=== PATIENT | male | born 1935 | race Caucasian/White ===

== ENCOUNTER 2020-11-28 14:53 | Inpatient (IN) | payer MEDICARE, BC, SELFPAY ==
[2020-11-28] VITALS (8 sets, daily range): BP systolic 102–136; BP diastolic 58–77; PULSE 80–112; RESP 16–18; TEMP 36.4–37.3; O2SAT 93–99; BMI 25.3
--- NOTE | ~2020-11-28 | XR_ITS ---
EXAMINATION: XR chest 2V DATE: 11/28/2020 15:52 INDICATION: Confusion, weakness and lethargy TECHNIQUE: frontal and lateral views of the chest were obtained. COMPARISON: Chest radiograph dated 04/09/2016 FINDINGS: Mild streaky opacities at the bilateral lung bases and favor atelectasis over pneumonia. No pleural e ffusion or pneumothorax. The cardiomediastinal silhouette is normal. Atherosclerotic and mildly tortu ous thoracic aorta. Mild scattered degenerative skeletal changes. IMPRESSION: 1. Mild bibasilar opacities and favor atelectasis over pneumonia. Reviewed, dictated and finalized at location A. BAG PACKER
--- NOTE | ~2020-11-28 | XR_ITS ---
EXAMINATION: XR chest 1V portable INDICATION: Shortness of breath TECHNIQUE: Portable AP chest at 0522 hours COMPARISON: 12/02/2020 FINDINGS: Airspace opacities of the mid and lower lung zones persist without significant change. Ther e is no pleural effusion or pneumothorax. The cardiomediastinal silhouette is normal. IMPRESSION: 1. Stable airspace opacities of the mid and lower lung zones, likely pneumonia. Reviewed, dictated and finalized at location A. AVER FLATWARE
--- NOTE | ~2020-11-28 | CT_ITS ---
EXAMINATION: CT brain wo con EXAM DATE: 11/28/2020 17:46 INDICATION: Confusion. Melanoma. TECHNIQUE: Spiral CT of the head was performed without contrast. Axial, coronal and sagittal images were reviewed. The dose-length product (DLP) for this examination was 605.33 mGy-cm. The exposure w as tailored according to patient size, and iterative reconstruction (ASIR) was used as additional dos e reduction technique. There is no prior study for comparison. FINDINGS: There is no acute intraparenchymal hemorrhage. No evidence of intraparenchymal brain mass lesion. No evidence of acute infarction. Please note that initial head CT has limited sensitivity f or small or acute infarctions. Possible 5 mm colloid cyst at the foramen of Monro. There is mild pe riventricular and subcortical hypodensity, nonspecific but probably related to small vessel ischemic disease. There is mild prominence of the sulci and ventricles related to cerebral atrophy. There is intracranial carotid arteriosclerosis. There are no extra-axial collections. There is no mass ef fect or midline shift. Prosthetic right globe. Left cataract surgery. Soft tissue is unremarkable. The visualized sinuses and mastoid air cells are well aerated. IMPRESSION: 1. No acute intracranial findings. 2. Chronic age related findings. 3. Possible small colloid cyst. Reviewed, dictated and finalized at location G. DRAFTING MACHINE OPERATOR
--- NOTE | ~2020-11-28 | US_ITS ---
EXAMINATION: US abdomen limited EXAM DATE: 12/05/2020 11:20 INDICATION: elevated liver enzymes, decreased appetite TECHNIQUE: Multiple grayscale and Doppler images of the abdomen right upper quadrant were obtained (b y a technologist who performed the scan) and subsequently reviewed. There is no prior study for norris carcamo. FINDINGS: Pancreas is poorly visualized. Mildly echogenic liver parenchyma, hepatic steatosis. There are no f ocal liver lesions identified. There is no evidence of intrahepatic biliary duct dilation. Portal venous flow was seen in the hepatopedal, normal direction and has normal Doppler waveform. No right- sided hydronephrosis. Common bile duct measures 3 mm, which is normal. The gallbladder wall is normal in thickness, with ex pected amount of distention. No sonographic evidence of pericholecystic fluid. There is no cholelit hiases. Technologist performing exam reports patient did not demonstrate sonographic James's sign. Please note that this sign is less reliable in patients who have received pain medication. IMPRESSION: 1. Hepatic steatosis. Reviewed, dictated and finalized at location B. F ANALYTICS OFFICER IMPRESSION: 1. Hepatic steatosis.
--- NOTE | ~2020-11-28 | XR_ITS ---
EXAMINATION: XR chest 1V portable INDICATION: COVID 19, shortness of breath TECHNIQUE: Portable AP chest at 0534 hours COMPARISON: 11/28/2020 FINDINGS: Airspace opacities have developed in the mid and lower lung zones, right greater than left. There is no pleural effusion or pneumothorax. The heart size is normal. Calcified atherosclerosis is noted. IMPRESSION: 1. Airspace opacities of the mid and lower lung zones, likely pneumonia related to history of COVID 1 9. Reviewed, dictated and finalized at location A. INTAKE WORKER IMPRESSION: 1. Airspace opacities of the mid and lower lung zones, likely pneumonia related to history of COVID 19.
--- NOTE | ~2020-11-28 | CT_ITS ---
EXAMINATION: CT brain wo con INDICATION: Head injury COMPARISON: 11/28/2020 TECHNIQUE: Standard unenhanced head CT. The dose-length product (DLP) was 605.33 mGy-cm. The mA was a djusted according to patient size. Iterative reconstruction technique was employed. FINDINGS: There is no acute intraparenchymal hemorrhage. No evidence of mass lesion. No evidence of a cute infarction. There is mild periventricular and subcortical hypodensity probably related to small vessel ischemic disease. There is mild prominence of the sulci and ventricles related to cerebral atr ophy. Intracranial calcified cerebral atherosclerosis is noted. There are no extra-axial collections. There is no mass effect or midline shift. A right globe prosthesis is noted. There is mild mucosal thickening of the paranasal sinuses. IMPRESSION: 1. No acute intracranial abnormality. 2. Age related findings. Reviewed, dictated and finalized at location A. STER COOK
--- NOTE | 2020-11-28 15:19 | ECG_ITS ---
Measurements Intervals [place] Rate: 88 P: 94 [place]: 160 QRS: -46 QRSD: 94 T: 51 QT: 362 QTc: 438 Interpretive Statements SINUS RHYTHM INCOMPLETE RIGHT BUNDLE BRANCH BLOCK LEFT ANTERIOR FASCICULAR BLOCK ABNORMAL ECG Electronically Signed On 11-28-2020 19:00:11 FURNACE SETTER by Yohannes Christie D.O.
[2020-11-28 15:35] LABS: Basophils Percent Auto 0.2 % (0.2-1.2); Hematocrit 37.8 % (42.0-52.0); Hemoglobin 12.5 g/dL (14.0-18.0); Immature Granulocyte Absolute 0.02 K/mm3 (0.00-0.031); Immature Granulocyte Percent A 0.4 % (0-0.5); Immature Platelet Fraction Pct 8.1 % (0.9-11.2); Lymphocytes Absolute Auto 1.04 K/mm3 (0.9-3.2); Lymphocytes Percent Auto 18.6 % (18.3-44.2); Mean Corpuscular HGB Conc 33.1 g/dl (32-36); Mean Corpuscular Volume 90.6 fl (80-100); Mean Platelet Volume 11.5 fl (7.4-10.4); Monocytes Absolute Auto 0.6 K/mm3 (0.1-0.6); Monocytes Percent Auto 11.3 % (2.6-8.5); Neutrophils Absolute Auto 3.9 K/mm3 (1.3-6.7); Neutrophils Percent Auto 69.5 % (45.5-73.1); Platelet Count Result 152 k/mm3 (150-375); Red Blood Count 4.17 M/mm3 (4.6-6.20); White Blood Count 5.6 K/mm3 (4.5-10.0)
[2020-11-28 15:46] LABS: Alanine Aminotransferase 37 U/L (4-50); Albumin Level 4.2 g/dL (3.5-5.1); Alkaline Phosphatase 91 U/L (38-126); Anion Gap 8 mmol/L (8-16); Aspartate Amino Transferase 67 U/L (17-59); Bilirubin,Total 0.9 mg/dL (0.2-1.3); Blood Urea Nitrogen 54 mg/dL (9-20); Calcium 8.5 mg/dL (8.4-10.2); Carbon Dioxide 30 mmol/L (22-30); Chloride 101 mmol/L (98-107); Estimated CRCL calculation 19 ml/min; Estimated Glomerular Filt Rate 21; Glucose 119 mg/dL (75-110); Potassium 3.4 mmol/L (3.4-5.0); Sodium 139 mmol/L (137-145)
--- NOTE | 2020-11-28 17:34 | ED.GENADULT ---
HPI - General Adult General Chief complaint: Weakness Stated complaint: weakness, decreased po intake Time Seen by Provider: 11/28/20 17:29 Source: patient and family History of Present Illness HPI narrative: Patient is a 85 y/o male brought in by family for increasing weakness and confusion. His son states that patient can usually walk and eat on his own. However, he can barely walk and has not eating eating for last 3 days. Related Data Allergies Allergy/AdvReac Type Severity Reaction Status Date / Time No Known Allergies Allergy Verified 11/28/20 15:20 Review of Systems Review of Systems: ROS unobtainable: Yes unobtainable due to mental status [facility] Social History Social History Gender identity (if verbalized by the patient): Male Exam Const: General: no acute distress and well developed Orientation/consciousness: oriented to person, oriented to place and confusion HENMT: Head: normocephalic Ears: external ears normal General nose exam: Normal external nose present Eyes: General: appearance normal, both eyes and all related structures Conjunctivae: conjunctivae normal Neck: Neck: normal visual inspection and full ROM Chest: Chest palpation & inspection: normal inspection of the chest and no tenderness Resp: Effort & Inspection: normal respiratory effort Auscultation: clear to auscultation bilaterally Cardio: Rate: regular rate Rhythm: regular rhythm GI: GI Palp: No abdominal tenderness and Yes Soft to palpation Skin: General skin exam: normal color and turgor normal Neuro: General: oriented to person, oriented to place and confusion Cranial nerves: Yes hard of hearing Cognition (Neuro): normal cognition Extrem: General: normal to inspection, full ROM and no pedal edema Psych: Appearance: grossly normal Mental Status: mental status grossly normal Affect: normal affect Course Vital Signs Vital signs: Vital Signs Temperature 36.7 C 11/28/20 15:13 Pulse Rate 86 11/28/20 15:13 Respiratory Rate 16 11/28/20 15:13 Blood Pressure 104/63 11/28/20 15:13 Pulse Oximetry 96 11/28/20 15:13 Temperature 36.7 C 11/28/20 15:13 Pulse Rate 87 11/28/20 18:11 Respiratory Rate 18 11/28/20 18:11 Blood Pressure 121/71 11/28/20 18:11 Pulse Oximetry 97 11/28/20 18:11 Medical Decision Making Vital Signs Vital Signs: Vital Signs Temperature 36.7 C 11/28/20 15:13 Pulse Rate 86 11/28/20 15:13 Respiratory Rate 16 11/28/20 15:13 Blood Pressure 104/63 11/28/20 15:13 Pulse Oximetry 96 11/28/20 15:13 Temperature 36.7 C 11/28/20 15:13 Pulse Rate 87 11/28/20 18:11 Respiratory Rate 18 11/28/20 18:11 Blood Pressure 121/71 11/28/20 18:11 Pulse Oximetry 97 11/28/20 18:11 Lab Data Result diagrams: 11/28/20 15:27 11/28/20 15:27 Labs: Lab Results 11/28/20 11/28/20 11/28/20 Range/Units 15:27 15:27 19:50 WBC 5.6 (4.5-10.0) K/mm3 RBC 4.17 L (4.6-6.20) M/mm3 Hgb 12.5 L (14.0-18.0) g/dL Hct 37.8 L (42.0-52.0) % MCV 90.6 (80-100) fl MCH 30.0 (26-34) pg MCHC 33.1 (32-36) g/dl RDW 14.0 (11.5-14.5) % Plt Count 152 (150-375) k/mm3 MPV 11.5 H (7.4-10.4) fl Immature Gran % (Auto) 0.4 (0-0.5) % Neut % (Auto) 69.5 (45.5-73.1) % Lymph % (Auto) 18.6 (18.3-44.2) % Marion % (Auto) 11.3 H (2.6-8.5) % Eos % (Auto) 0.0 (0-4.4) % Baso % (Auto) 0.2 (0.2-1.2) % Lymph # (Auto) 1.04 (0.9-3.2) K/mm3 Marion # (Auto) 0.6 (0.1-0.6) K/mm3 Eos # (Auto) 0.0 (0-0.3) K/mm3 Baso # (Auto) 0.0 (0.0-0.1) K/mm3 Abs Immat Gran (auto) 0.02 (0.00-0.031) K/mm3 Absolute Neuts (auto) 3.9 (1.3-6.7) K/mm3 Absolute Nucleated RBC 0.0 (0.0-0.012) K/mm3 Nucleated RBC % 0.0 (0.0-0.2) % % Immature Plt Fraction 8.1 (0.9-11.2) % Sodium 139 (137-145) mmol/L Potassium 3.4 (3.4-5.0) mmol/L Chloride 101 (98-107) mmol/L Carbon
[2020-11-28] MEDS: SODIUM CHLORIDE 0.9% IV 1,000 ML 999 ML IV CONT (17:48)
--- NOTE | 2020-11-28 20:00 | PC.NURSE ---
This patient, Jennifer Rivera, was admitted to [address] [place] [address] Room 325-01. Patient/family oriented to hospital policies and general routines including ID bracelet, bed and alarms, visiting hours, pain management, procedures, bathroom and other care routines, personal items, smoking policy, room service/diet, and visiting hours. Information on how to activate the Rapid Response Team has been discussed. Patient/Family are encouraged to report perceived risks to care and to ask questions if they do not understand what they are told or what they should do.
--- NOTE | 2020-11-28 22:50 | ECG_ITS ---
Measurements Intervals [place] Rate: 106 P: [place]: 0 QRS: -39 QRSD: 94 T: 18 QT: 330 QTc: 439 Interpretive Statements ATRIAL FIBRILLATION WITH RAPID VENTRICULAR RESPONSE LEFT AXIS DEVIATION INCOMPLETE RIGHT BUNDLE BRANCH BLOCK BASELINE ARTIFACT- I, II ABNORMAL ECG Electronically Signed On 11-29-2020 7:05:02 DESULFURIZER MACHINE by Yohannes Christie D.O.
[2020-11-29] VITALS (15 sets, daily range): BP systolic 106–123; BP diastolic 55–73; PULSE 57–84; RESP 14–20; TEMP 36.4–38.2; O2SAT 93–97
[2020-11-29] MEDS: SODIUM CHLORIDE 0.9% IV 1,000 ML 100 ML IV CONT (00:09)
[2020-11-29] MEDS: ACETAMINOPHEN 325 MG TABLET 650 MG PO ×3 (03:20→21:38)
--- NOTE | 2020-11-29 03:38 | PM.IMHP ---
H&P: HPI History of Present Illness Date/Time: 11/29/20 03:38 Chief Complaint: Acute confusion and weakness Narrative: This is an 85 year old male with known HTN and hyperlipidemia who presented to the hospital yesterday with his family secondary to confusion and generalized weakness. His son reported that he wasn't eating for about 3 days now and has become too weak to ambulate. The patient is encephalopathic and not answering my questions appropriately. No further history is obtainable from him in his current state. Nursing informed me that the patient apparently was found on the ground next to his bed. It is not known if he suffered any head trauma but he does have an excoriation on his back. The patient has been febrile tonight and routine labs demonstrated renal failure with a Cr of 2.9. We do not have a baseline Cr. The patient was swabbed for COVID-19 and admitted to the hospital for further care. Review of Systems Review of Systems: All systems reviewed & are unremarkable except as noted in HPI and below PMFSH Past Medical History Medical History (Updated 11/29/20 @ 04:27 by Jian Barrera MD) Glaucoma H/O: HTN (hypertension) Hyperlipidemia Social History Social History Smoking status: Never smoker Alcohol intake: former Substance use: never Gender identity (if verbalized by the patient): Male Spiritual care concerns: No Comments Past surgical and family histories are unobtainable from the patient due to his acute encephalopathy Meds Home Medications and Allergies Home Medications Medication Instructions Recorded Confirmed Type Tylenol 500 mg PO Q8H PRN 11/28/20 11/28/20 History amlodipine 5 mg PO DAILY 11/28/20 11/28/20 History aspirin 81 mg PO DAILY 11/28/20 11/28/20 History atorvastatin 40 mg PO HS 11/28/20 11/28/20 History hydrochlorothiazide 12.5 mg PO DAILY 11/28/20 11/28/20 History latanoprost 1 drp LEFT EYE HS 11/28/20 11/28/20 History losartan-hydrochlorothiazide 1 tablet PO DAILY 11/28/20 11/28/20 History timolol maleate 1 drp LEFT EYE BID 11/28/20 11/28/20 History Allergies Allergy/AdvReac Type Severity Reaction Status Date / Time No Known Allergies Allergy Verified 11/28/20 20:45 Vital Signs Vital Signs - 24 hr 11/28/20 15:13 11/28/20 17:26 11/28/20 17:27 Temperature 36.7 C Pulse Rate 86 80 80 Respiratory Rate 16 18 Blood Pressure 104/63 136/77 Pulse Oximetry 96 99 11/28/20 18:03 11/28/20 18:11 11/28/20 20:00 Temperature 36.4 C L Pulse Rate 88 87 101 H Respiratory Rate 18 18 18 Blood Pressure 121/71 121/71 118/68 Pulse Oximetry 96 97 96 11/28/20 21:40 11/28/20 23:43 11/29/20 00:00 Temperature 37.3 C Pulse Rate 112 H 85 80 Respiratory Rate 18 Blood Pressure 102/58 L Pulse Oximetry 93 11/29/20 00:12 11/29/20 03:07 11/29/20 03:20 Temperature 38.2 C H 37.7 C H Pulse Rate 79 Respiratory Rate 18 Blood Pressure 113/55 L Pulse Oximetry 97 Exam Const: General: awake, ill appearing and other (Febrile to touch++ ) Nutritional Appearance: well nourished Orientation/consciousness: confusion and Other orientation findings (encephalopathic+ ) HENMT: Head: normal to inspection General nose exam: Normal external nose present Face and sinus: normal facial exam Mouth: Yes Normal oral and palatal mucosa present and Yes oropharynx normal Eyes: Pupils: Equal, round and reactive pupils present EOM: EOMs intact bilaterally Neck: Neck: supple and no JVD Thyroid: thyroid normal Lymphatic: lymphadenopathy not noted Resp: Effort & Inspection: normal respiratory effort Auscultation: clear to auscultation bilaterally Cardio: Rate: regular rate Rhythm: regular rhythm Heart sounds: no murmurs GI: Inspection: normal to inspection Auscultation: normal bowel sounds Skin: General skin exam: normal color and no rashes or lesions noted Neuro: General: confusion Crani
[2020-11-29 06:10] LABS: Basophils Percent Auto 0.2 % (0.2-1.2); Hematocrit 32.2 % (42.0-52.0); Hemoglobin 10.5 g/dL (14.0-18.0); Immature Granulocyte Absolute 0.04 K/mm3 (0.00-0.031); Immature Granulocyte Percent A 0.8 % (0-0.5); Lymphocytes Absolute Auto 0.96 K/mm3 (0.9-3.2); Mean Corpuscular HGB Conc 32.6 g/dl (32-36); Mean Corpuscular Hemoglobin 29.4 pg (26-34); Mean Corpuscular Volume 90.2 fl (80-100); Mean Platelet Volume 11.7 fl (7.4-10.4); Monocytes Absolute Auto 0.5 K/mm3 (0.1-0.6); Monocytes Percent Auto 8.9 % (2.6-8.5); Neutrophils Absolute Auto 3.6 K/mm3 (1.3-6.7); Neutrophils Percent Auto 71.1 % (45.5-73.1); Platelet Count Result 125 k/mm3 (150-375); Red Blood Count 3.57 M/mm3 (4.6-6.20)
[2020-11-29 06:45] LABS: Anion Gap 8 mmol/L (8-16); Blood Urea Nitrogen 55 mg/dL (9-20); Calcium 7.7 mg/dL (8.4-10.2); Carbon Dioxide 27 mmol/L (22-30); Chloride 107 mmol/L (98-107); Estimated CRCL calculation 21 ml/min; Estimated Glomerular Filt Rate 25; Glucose 111 mg/dL (75-110); Magnesium 1.8 mg/dL (1.6-2.3); Potassium 2.7 mmol/L (3.4-5.0); Sodium 142 mmol/L (137-145)
[2020-11-29 07:36] LABS: Folic Acid 19.6 ng/mL (2.76->20)
[2020-11-29 08:23] LABS: Amphetamine Screen Urine Negative (Negative); Barbiturate Screen Urine Negative (Negative); Benzodiazepines Screen Urine Negative (Negative); Cannabinoid Screen Urine Negative (Negative); Cocaine Screen Urine Negative (Negative); Methadone Screen Urine Negative (Negative); Opiate Screen Urine Negative (Negative); Phencyclidine Screen Urine Negative (Negative)
[2020-11-29] MEDS: amLODIPine BESYLATE 5 MG TABLET PO (08:32)
[2020-11-29] MEDS: TIMOLOL MALEATE 0.5% OP SOLN 5 ML BOTTLE 1 DROP LEFT EYE ×2 (08:33→17:59)
[2020-11-29] MEDS: ENOXAPARIN 30 MG/0.3 ML SYRINGE SUB-Q (08:33)
[2020-11-29 13:56] LABS: SARS-CoV-2 RNA PCR Positive
--- NOTE | 2020-11-29 15:14 | PCPTNOTE ---
Spoke with Bess Huang on continuation of therapy orders, she deferred to rn diabetes educator to make the decision due to recent PA yesterday. RN spoke with rn diabetes educator and awaiting verbal orders on continuation, will hold on therapy treatment today and follow up tomorrow.
--- NOTE | 2020-11-29 15:37 | PM.IMPN ---
Progress Note: A&P Assessment and Plan (1) COVID-19: Code(s): U07.1 - COVID-19 Status: Acute Assessment and Plan: COVID-19 positive 11/28/20 -not requiring oxygen -chest x-ray favor atelectasis over pneumonia -no signs of pneumonia on exam -not requiring any oxygen, no indication for Remdesivir or Decadron -will continue Lovenox (2) Altered mental status: Qualifiers: Altered mental status type: unspecified Qualified Code(s): R41.82 - Altered mental status, unspecified Code(s): R41.82 - Altered mental status, unspecified Status: Acute Assessment and Plan: Acute metabolic encephalopathy likely due to COVID-19 -urine drug screen, TSH, B12 are normal -CT of the brain x2 normal -he is more alert today but hard of hearing so I am unsure if he is disoriented -family is planning on bringing batteries for his hearing aids -monitor closely, consider MRI if patient is still confused although I do not think this is necessary -will check UA (3) Dehydration: Code(s): E86.0 - Dehydration Status: Acute Assessment and Plan: Continue IV hydration as he appears dry on exam and on labs -monitor fluid status closely due to COVID-19 -no evidence of fluid overload with clear lungs and no edema to the lower extremities. (4) DARRIN (acute kidney injury): Code(s): N17.9 - Acute kidney failure, unspecified Status: Acute Assessment and Plan: Creatinine better today 2.5 down from 2.9 on admission -continue IV fluids -check UA -consider ultrasound and nephrology consult if the patient does not improve with above treatment (5) Suspected 2019 novel coronavirus infection: Code(s): Z20.822 - Contact with and (suspected) exposure to COVID-19 Status: Acute Assessment and Plan: Continue droplet isolation. (6) Normocytic anemia: Code(s): D64.9 - Anemia, unspecified Status: Acute Assessment and Plan: Acute vs. chronic? Likely multifactorial. No signs of acute blood loss. Monitor H/H, transfuse prn. (7) H/O: HTN (hypertension): Code(s): Z86.79 - Personal history of other diseases of the circulatory system Status: Chronic Assessment and Plan: Continue amlodipine -last blood pressure 110/62 -hold home losartan and hydrochlorothiazide due to DARRIN (8) Hyperlipidemia: Qualifiers: Hyperlipidemia type: unspecified Qualified Code(s): E78.5 - Hyperlipidemia, unspecified Code(s): E78.5 - Hyperlipidemia, unspecified Status: Chronic Assessment and Plan: Continue statin therapy (9) Glaucoma: Qualifiers: Glaucoma type: unspecified Laterality: unspecified laterality Qualified Code(s): H40.9 - Unspecified glaucoma Code(s): H40.9 - Unspecified glaucoma Status: Chronic Assessment and Plan: Continue glaucoma eye drops. Time Spent With Patient Time with patient: 25 - 35 minutes Subjective Date/time seen: 11/29/20 15:37 Interval history: Pt is a very hard of hearing 85-year-old who is here for COVID-19. Patient was seen today and is unable to really hear anything I say and is unable to read anything I write. From what I can tell, he says he is not in any pain and does not appear to be short of breath. No reports from the nursing staff of any issues overnight. Patient is not eating much. Review of Systems Review of Systems: All systems reviewed & are unremarkable except as noted in HPI and below Exam Narrative: Exam Narrative: General: Well developed well nourished patient in NAD HEENT: normocephalic, hard of hearing Neck: supple Neuro: Alert, unable to answer any orientation questions due to hearing loss CV:RRR. Telemetry shows a lot of artifact and occasional tachycardia which appears to be sinus Resp:CTA Abd: Soft, non distended. No pain to palpation. Positive bowel sounds Extremities: No s
[2020-11-29] MEDS: SODIUM CHLORIDE 0.9% IV 1,000 ML 120 ML IV CONT (17:59)
[2020-11-29] MEDS: POTASSIUM CHLORIDE 20 MEQ TABLET 40 MEQ PO (17:59)
[2020-11-29] MEDS: ALBUTEROL SULFATE (*SP) AEROSOL 1 PUFF 2 PUFF INHALATION (21:14)
[2020-11-29] MEDS: LATANOPROST 0.005% OP SOLN 2.5 ML BTL 1 DROP LEFT EYE (21:44)
[2020-11-29] MEDS: ALBUTEROL SULFATE (*SP) INHALER 1 PUFF (22:49)
[2020-11-29] MEDS: ATORVASTATIN 40 MG TABLET PO (23:11)
[2020-11-30] VITALS (7 sets, daily range): BP systolic 100–142; BP diastolic 59–66; PULSE 77–89; RESP 16–20; TEMP 36.6–37.1; O2SAT 91–97
[2020-11-30 01:25] LABS: Add Urine Microscopic? YES; Appearance Urine Clear (Clear); Bacteria Urine Trace /hpf; Bilirubin Urine Negative (Negative); Blood Urine 1+ (Negative); Color Urine Yellow (Yellow); Glucose Urine UA Negative (Negative); Ketones Urine Negative (Negative); Leukocyte Esterase Ur Negative LEU/UL (Negative); Mucus Urine Rare /lpf; Nitrate Urine Negative (Negative); Protein Urine 1+ mg/dL (Negative); RBC Urine 0-2 /hpf (0-2); Specific Grav Ur 1.014 (1.001-1.035); Squamous Epithelial Cell Urine Rare /hpf (Few); Urobilinogen Urine Negative mg/dL (<2.0); WBC Urine 0-3 /hpf
[2020-11-30] MEDS: SODIUM CHLORIDE 0.9% IV 1,000 ML 120 ML IV CONT ×2 (06:25→14:39)
[2020-11-30 06:39] LABS: Hematocrit 34.5 % (42.0-52.0); Hemoglobin 11.2 g/dL (14.0-18.0); Mean Corpuscular HGB Conc 32.5 g/dl (32-36); Mean Corpuscular Hemoglobin 29.6 pg (26-34); Mean Platelet Volume 11.8 fl (7.4-10.4); Platelet Count Result 127 k/mm3 (150-375); Red Blood Count 3.79 M/mm3 (4.6-6.20); White Blood Count 6.4 K/mm3 (4.5-10.0)
[2020-11-30 06:43] LABS: Alanine Aminotransferase 44 U/L (4-50); Albumin Level 3.4 g/dL (3.5-5.1); Alkaline Phosphatase 85 U/L (38-126); Anion Gap 7 mmol/L (8-16); Aspartate Amino Transferase 87 U/L (17-59); Bilirubin,Total 0.8 mg/dL (0.2-1.3); Blood Urea Nitrogen 31 mg/dL (9-20); Calcium 7.8 mg/dL (8.4-10.2); Carbon Dioxide 28 mmol/L (22-30); Chloride 107 mmol/L (98-107); Estimated CRCL calculation 31 ml/min; Estimated Glomerular Filt Rate 39; Glucose 108 mg/dL (75-110); Lactate Dehydrogenase 748 U/L (313-618); Phosphorus 2.1 mg/dL (2.5-4.5); Potassium 3.1 mmol/L (3.4-5.0); Sodium 142 mmol/L (137-145)
[2020-11-30] MEDS: ALBUTEROL SULFATE (*SP) AEROSOL 1 PUFF 2 PUFF INHALATION ×3 (08:00→21:41)
[2020-11-30] MEDS: POTASSIUM CHLORIDE 20 MEQ TABLET 40 MEQ PO (09:34)
[2020-11-30] MEDS: POTASSIUM PHOS/SODIUM PHOS 250 MG TABLET PO ×2 (10:36→17:05)
[2020-11-30] MEDS: amLODIPine BESYLATE 5 MG TABLET PO (10:36)
[2020-11-30] MEDS: ENOXAPARIN 30 MG/0.3 ML SYRINGE SUB-Q (10:37)
--- NOTE | 2020-11-30 15:19 | PM.IMPN ---
Progress Note: A&P Assessment and Plan (1) COVID-19: Code(s): U07.1 - COVID-19 Status: Acute Assessment and Plan: COVID-19 positive 11/28/20 -not requiring oxygen -chest x-ray favor atelectasis over pneumonia but will recheck CXR tomorrow morning -pt had a slight cough today -not requiring any oxygen, no indication for Remdesivir or Decadron -will continue Lovenox -Pt is not eating. says he didn't eat for a week prior. Will start supplements (2) Altered mental status: Qualifiers: Altered mental status type: unspecified Qualified Code(s): R41.82 - Altered mental status, unspecified Code(s): R41.82 - Altered mental status, unspecified Status: Acute Assessment and Plan: Acute metabolic encephalopathy likely due to COVID-19 -urine drug screen, TSH, B12 are normal -CT of the brain x2 normal -he is more alert today but still confused -family is planning on bringing batteries for his hearing aids -monitor closely, consider MRI if patient is still confused although I do not think this is necessary -UA looks okay (3) Dehydration: Code(s): E86.0 - Dehydration Status: Acute Assessment and Plan: Continue IV hydration as he appears dry on exam but slow rate. Watch for fluid overload. Check CXR in the AM -monitor fluid status closely due to COVID-19 -no evidence of fluid overload with clear lungs and no edema to the lower extremities. (4) DARRIN (acute kidney injury): Code(s): N17.9 - Acute kidney failure, unspecified Status: Acute Assessment and Plan: Creatinine better today 1.7 down from 2.9 on admission -continue IV fluids but decrease rate -UA with no evidence of infection -consider ultrasound and nephrology consult if the patient does not improve with above treatment (5) Suspected 2019 novel coronavirus infection: Code(s): Z20.822 - Contact with and (suspected) exposure to COVID-19 Status: Acute Assessment and Plan: Continue droplet isolation. (6) Normocytic anemia: Code(s): D64.9 - Anemia, unspecified Status: Acute Assessment and Plan: Acute vs. chronic? Likely multifactorial. No signs of acute blood loss. Monitor H/H, transfuse prn. (7) H/O: HTN (hypertension): Code(s): Z86.79 - Personal history of other diseases of the circulatory system Status: Chronic Assessment and Plan: Continue amlodipine -last blood pressure 115/62 -hold home losartan and hydrochlorothiazide due to DARRIN (8) Hyperlipidemia: Qualifiers: Hyperlipidemia type: unspecified Qualified Code(s): E78.5 - Hyperlipidemia, unspecified Code(s): E78.5 - Hyperlipidemia, unspecified Status: Chronic Assessment and Plan: Continue statin therapy (9) Glaucoma: Qualifiers: Glaucoma type: unspecified Laterality: unspecified laterality Qualified Code(s): H40.9 - Unspecified glaucoma Code(s): H40.9 - Unspecified glaucoma Status: Chronic Assessment and Plan: Continue glaucoma eye drops. Additional Plan Subjective Date/time seen: 11/30/20 15:19 Interval history: Pt is a very hard of hearing 85-year-old who is here for COVID-19. Patient was seen today and was able to hear better. He states he is not any pain but keeps repeating oh man . When asked what he is referring to, he can't say. He says he does not feel short of breath, have chest pain or abdominal pain. He says he is not eating because he does not feel like it. I talked to his gave her an update. The states the does have dementia but is usually able to hold a conversation, knows where he is, likely does not know the year or the president. Exam Narrative: Exam Narrative: General: Well developed well nourished patient in NAD HEENT: normocephalic, hard of hearing Neck: supple Neuro: Alert, able to tell me his name but no
[2020-11-30] MEDS: TIMOLOL MALEATE 0.5% OP SOLN 5 ML BOTTLE 1 DROP LEFT EYE ×2 (15:33→17:06)
--- NOTE | 2020-11-30 16:02 | PC.NURSE ---
1530 bladder scannned pt has 345 ml, unsure if post void pt is incont. , notified thanh perry, order recieved for straightcath, and bladder scan in 6 hours.
--- NOTE | 2020-11-30 16:03 | PC.NURSE ---
1600 straight cath, done altitude chamber technician, 400cc or yellow urine returned.
[2020-11-30] MEDS: ATORVASTATIN 40 MG TABLET PO (21:41)
[2020-11-30] MEDS: LATANOPROST 0.005% OP SOLN 2.5 ML BTL 1 DROP LEFT EYE (21:41)
[2020-12-01] VITALS (7 sets, daily range): BP systolic 121–138; BP diastolic 67–86; PULSE 78–122; RESP 18–22; TEMP 36.5–39.3; O2SAT 91–94
[2020-12-01 06:21] LABS: Hematocrit 36.4 % (42.0-52.0); Hemoglobin 11.9 g/dL (14.0-18.0); Mean Corpuscular HGB Conc 32.7 g/dl (32-36); Mean Corpuscular Hemoglobin 29.9 pg (26-34); Mean Corpuscular Volume 91.5 fl (80-100); Platelet Count Result 149 k/mm3 (150-375); Red Blood Count 3.98 M/mm3 (4.6-6.20); Red Cell Distribution Width 14.3 % (11.5-14.5); White Blood Count 8.9 K/mm3 (4.5-10.0)
[2020-12-01 06:46] LABS: Anion Gap 8 mmol/L (8-16); Blood Urea Nitrogen 22 mg/dL (9-20); Calcium 7.5 mg/dL (8.4-10.2); Carbon Dioxide 26 mmol/L (22-30); Chloride 110 mmol/L (98-107); Estimated CRCL calculation 40 ml/min; Estimated Glomerular Filt Rate 53; Glucose 105 mg/dL (75-110); Magnesium 1.6 mg/dL (1.6-2.3); Phosphorus 2.3 mg/dL (2.5-4.5); Sodium 144 mmol/L (137-145)
[2020-12-01 06:53] LABS: CRP 15.3 mg/dL (<1.0)
[2020-12-01] MEDS: ALBUTEROL SULFATE (*SP) AEROSOL 1 PUFF 2 PUFF INHALATION ×3 (08:36→20:47)
[2020-12-01] MEDS: MAGNESIUM OXIDE 200 MG TABLET PO ×2 (08:37→20:50)
[2020-12-01] MEDS: ENOXAPARIN 30 MG/0.3 ML SYRINGE SUB-Q ×2 (08:37→20:47)
[2020-12-01] MEDS: DEXAMETHASONE 2 MG TABLET 6 MG PO (08:37)
[2020-12-01] MEDS: amLODIPine BESYLATE 5 MG TABLET PO (08:37)
[2020-12-01] MEDS: POTASSIUM PHOS/SODIUM PHOS 250 MG TABLET PO ×2 (08:37→16:32)
[2020-12-01] MEDS: POTASSIUM CHLORIDE 20 MEQ TABLET 40 MEQ PO (08:37)
[2020-12-01] MEDS: TIMOLOL MALEATE 0.5% OP SOLN 5 ML BOTTLE 1 DROP LEFT EYE ×2 (08:40→16:32)
--- NOTE | 2020-12-01 13:06 | PCOTNOTE ---
Attempted to see patient at this time for skilled OT session. Patient alert and eating lunch, refusing OT session at this time. Will attempt to see patient a second time this date.
--- NOTE | 2020-12-01 14:19 | PM.IMPN ---
Progress Note: A&P Assessment and Plan (1) COVID-19: Code(s): U07.1 - COVID-19 Status: Acute Assessment and Plan: COVID-19 positive 11/28/20 -not requiring oxygen -chest x-ray seems to be worsening. Will start decadron since pt is 91% on RA -not requiring any oxygen, no indication for Remdesivir -will continue Lovenox -Pt is not eating. says he didn't eat for a week prior. hopefully the decadron will help. I have started supplements. Consider megace but risk of clots with that and pt is already hypercoagulable because of covid. (2) Altered mental status: Qualifiers: Altered mental status type: unspecified Qualified Code(s): R41.82 - Altered mental status, unspecified Code(s): R41.82 - Altered mental status, unspecified Status: Acute Assessment and Plan: Acute metabolic encephalopathy likely due to COVID-19 -urine drug screen, TSH, B12 are normal -CT of the brain x2 normal -he is more alert today but still confused -monitor closely, consider MRI if patient is still confused -UA looks okay (3) Dehydration: Code(s): E86.0 - Dehydration Status: Acute Assessment and Plan: Will discontinue fluids. Pt looks more hydrated today and labs are better. -no evidence of fluid overload with clear lungs and no edema to the lower extremities. (4) DARRIN (acute kidney injury): Code(s): N17.9 - Acute kidney failure, unspecified Status: Acute Assessment and Plan: Creatinine better today 1.3 down from 2.9 on admission -will stop IV fluids -UA with no evidence of infection (5) Suspected 2019 novel coronavirus infection: Code(s): Z20.822 - Contact with and (suspected) exposure to COVID-19 Status: Acute Assessment and Plan: Continue droplet isolation. (6) Normocytic anemia: Code(s): D64.9 - Anemia, unspecified Status: Acute Assessment and Plan: Acute vs. chronic? Likely multifactorial. No signs of acute blood loss. Monitor H/H, transfuse prn. (7) H/O: HTN (hypertension): Code(s): Z86.79 - Personal history of other diseases of the circulatory system Status: Chronic Assessment and Plan: Continue amlodipine -last blood pressure 123/85 -hold home losartan and hydrochlorothiazide due to DARRIN (8) Hyperlipidemia: Qualifiers: Hyperlipidemia type: unspecified Qualified Code(s): E78.5 - Hyperlipidemia, unspecified Code(s): E78.5 - Hyperlipidemia, unspecified Status: Chronic Assessment and Plan: Continue statin therapy (9) Glaucoma: Qualifiers: Glaucoma type: unspecified Laterality: unspecified laterality Qualified Code(s): H40.9 - Unspecified glaucoma Code(s): H40.9 - Unspecified glaucoma Status: Chronic Assessment and Plan: Continue glaucoma eye drops. Additional Plan Subjective Date/time seen: 12/01/20 14:19 Interval history: Pt is a very hard of hearing 85-year-old who is here for COVID-19. Patient was seen today and was able to hear better. He states he is not any pain and is not hungry. We discussed that he needs to eat to feel better but he doesn't seem to understand. He left me feed him mashed potatoes at bedside but then spit it out and said he was full. The states the does have dementia but is usually able to hold a conversation, knows where he is, likely does not know the year or the president. Exam Narrative: Exam Narrative: General: Well developed well nourished patient in NAD HEENT: normocephalic, hard of hearing Neck: supple Neuro: Alert, able to tell me his name but not where he is, what year, and doesn't seem to understand what COVID is. CV:RRR. Resp:CTA Abd: Soft, mildly distended. No pain to palpation. Positive bowel sounds Extremities: No swelling, erythema, or pain to palpation. Objective Data Vital Signs Vital Signs: Vi
[2020-12-01] MEDS: ACETAMINOPHEN 325 MG TABLET 650 MG PO (20:46)
[2020-12-01] MEDS: ATORVASTATIN 40 MG TABLET PO (20:47)
[2020-12-01] MEDS: LATANOPROST 0.005% OP SOLN 2.5 ML BTL 1 DROP LEFT EYE (20:50)
[2020-12-02] VITALS (10 sets, daily range): BP systolic 118–132; BP diastolic 71–81; PULSE 86–101; RESP 18–20; TEMP 36.2–39.6; O2SAT 92–98
[2020-12-02] MEDS: ACETAMINOPHEN 325 MG TABLET 650 MG PO (03:22)
[2020-12-02] MEDS: ALBUTEROL SULFATE (*SP) AEROSOL 1 PUFF 2 PUFF INHALATION ×4 (03:23→20:30)
[2020-12-02 06:47] LABS: Hematocrit 38.1 % (42.0-52.0); Hemoglobin 12.3 g/dL (14.0-18.0); Mean Corpuscular HGB Conc 32.3 g/dl (32-36); Mean Corpuscular Hemoglobin 29.6 pg (26-34); Mean Corpuscular Volume 91.8 fl (80-100); Mean Platelet Volume 12.1 fl (7.4-10.4); Platelet Count Result 186 k/mm3 (150-375); Red Blood Count 4.15 M/mm3 (4.6-6.20); Red Cell Distribution Width 14.4 % (11.5-14.5); White Blood Count 10.7 K/mm3 (4.5-10.0)
[2020-12-02 08:37] LABS: Alanine Aminotransferase 77 U/L (4-50); Albumin Level 3.4 g/dL (3.5-5.1); Alkaline Phosphatase 114 U/L (38-126); Anion Gap 8 mmol/L (8-16); Aspartate Amino Transferase 144 U/L (17-59); Bilirubin,Total 0.9 mg/dL (0.2-1.3); Blood Urea Nitrogen 29 mg/dL (9-20); Calcium 7.6 mg/dL (8.4-10.2); Carbon Dioxide 29 mmol/L (22-30); Chloride 111 mmol/L (98-107); Estimated CRCL calculation 31 ml/min; Estimated Glomerular Filt Rate 39; Glucose 119 mg/dL (75-110); Magnesium 1.8 mg/dL (1.6-2.3); Phosphorus 2.4 mg/dL (2.5-4.5); Potassium 3.1 mmol/L (3.4-5.0); Sodium 148 mmol/L (137-145)
[2020-12-02] MEDS: ENOXAPARIN 30 MG/0.3 ML SYRINGE SUB-Q ×2 (10:01→20:31)
[2020-12-02] MEDS: TIMOLOL MALEATE 0.5% OP SOLN 5 ML BOTTLE 1 DROP LEFT EYE (10:03)
[2020-12-02] MEDS: LACTATED RINGERS 1,000 ML 100 ML IV CONT (12:21)
--- NOTE | 2020-12-02 15:31 | PM.IMPN ---
Progress Note: A&P Assessment and Plan (1) COVID-19: Code(s): U07.1 - COVID-19 Status: Acute Assessment and Plan: COVID-19 positive 11/28/20 -not requiring oxygen -chest x-ray seems to be worsening. -Pt is having worsening fevers. -His CRP is more elevated, he is now in DARRIN, has low potassium and hypernatremia. LFTs are also worse -start ceftriaxone, azithromycin and restart fluids -not requiring any oxygen, no indication for Remdesivir -will continue Lovenox -Pt is not eating. says he didn't eat for a week prior. hopefully the decadron will help. I have started supplements but patient isn't drinking those either. Consider megace but risk of clots with that and pt is already hypercoagulable because of covid. May need TPN as i do not think he will tolerate an NG tube. Spoke with the family about this and they are going to discuss code status and their wishes for feedings. (2) Altered mental status: Qualifiers: Altered mental status type: unspecified Qualified Code(s): R41.82 - Altered mental status, unspecified Code(s): R41.82 - Altered mental status, unspecified Status: Acute Assessment and Plan: Acute metabolic encephalopathy likely due to COVID-19 -urine drug screen, TSH, B12 are normal -CT of the brain x2 normal -he is still significantly confused -monitor closely, consider MRI. Will re-adress this tomorrow after speaking with the family about their wishes again -UA looks okay (3) Dehydration: Code(s): E86.0 - Dehydration Status: Acute Assessment and Plan: Fluids discontinued 12/01 and pt is now dehydrated -fluids restarted 12/02 (4) DARRIN (acute kidney injury): Code(s): N17.9 - Acute kidney failure, unspecified Status: Acute Assessment and Plan: Creatinine worse today at 1.7 but still down from 2.9 on admission -IV fluids restarted (5) Suspected 2019 novel coronavirus infection: Code(s): Z20.822 - Contact with and (suspected) exposure to COVID-19 Status: Acute Assessment and Plan: Continue droplet isolation. (6) Normocytic anemia: Code(s): D64.9 - Anemia, unspecified Status: Acute Assessment and Plan: Acute vs. chronic? Likely multifactorial. No signs of acute blood loss. Monitor H/H, transfuse prn. (7) H/O: HTN (hypertension): Code(s): Z86.79 - Personal history of other diseases of the circulatory system Status: Chronic Assessment and Plan: Continue amlodipine -last blood pressure 126/71 -hold home losartan and hydrochlorothiazide due to DARRIN (8) Hyperlipidemia: Qualifiers: Hyperlipidemia type: unspecified Qualified Code(s): E78.5 - Hyperlipidemia, unspecified Code(s): E78.5 - Hyperlipidemia, unspecified Status: Chronic Assessment and Plan: Continue statin therapy (9) Glaucoma: Qualifiers: Glaucoma type: unspecified Laterality: unspecified laterality Qualified Code(s): H40.9 - Unspecified glaucoma Code(s): H40.9 - Unspecified glaucoma Status: Chronic Assessment and Plan: Continue glaucoma eye drops. Additional Plan Subjective Date/time seen: 12/02/20 15:31 Interval history: Pt is a very hard of hearing 85-year-old who is here for COVID-19. Patient was seen today and does not really hold a conversation. He states he is not any pain and is not hungry. He was too weak to drink out of a straw but was able to take a sip out of a small cup. We discussed that he needs to eat to feel better but he doesn't seem to understand. I spoke with the son who is going to talk to his family about code status since pt is worsening. Exam Narrative: Exam Narrative: General:elderly man resting in bed in NAD HEENT: normocephalic, hard of hearing Neck: supple Neuro: Alert, able to tell me his name but not where he is, what year, and doesn't seem to unders
[2020-12-02] MEDS: LATANOPROST 0.005% OP SOLN 2.5 ML BTL 1 DROP LEFT EYE (20:29)
[2020-12-02] MEDS: ATORVASTATIN 40 MG TABLET PO (20:30)
[2020-12-02] MEDS: MAGNESIUM OXIDE 200 MG TABLET PO (20:30)
[2020-12-03] MEDS: ALBUTEROL SULFATE (*SP) AEROSOL 1 PUFF 2 PUFF INHALATION ×4 (01:59→21:08)
[2020-12-03 03:56] VITALS: BP 119/69; PULSE 80; RESP 16; TEMP 36.7; O2SAT 95
[2020-12-03 08:00] VITALS: BP 126/71; PULSE 87; RESP 20; TEMP 37.3; O2SAT 97
[2020-12-03 08:27] LABS: Basophils Percent Auto 0.2 % (0.2-1.2); Hematocrit 36.4 % (42.0-52.0); Hemoglobin 11.8 g/dL (14.0-18.0); Immature Granulocyte Absolute 0.09 K/mm3 (0.00-0.031); Immature Granulocyte Percent A 0.7 % (0-0.5); Lymphocytes Absolute Auto 0.82 K/mm3 (0.9-3.2); Lymphocytes Percent Auto 6.7 % (18.3-44.2); Mean Corpuscular HGB Conc 32.4 g/dl (32-36); Mean Corpuscular Hemoglobin 29.4 pg (26-34); Mean Corpuscular Volume 90.5 fl (80-100); Monocytes Absolute Auto 0.4 K/mm3 (0.1-0.6); Monocytes Percent Auto 3.1 % (2.6-8.5); Neutrophils Absolute Auto 10.9 K/mm3 (1.3-6.7); Neutrophils Percent Auto 89.3 % (45.5-73.1); Platelet Count Result 221 k/mm3 (150-375); Red Blood Count 4.02 M/mm3 (4.6-6.20); Red Cell Distribution Width 14.4 % (11.5-14.5); White Blood Count 12.2 K/mm3 (4.5-10.0)
[2020-12-03 08:36] LABS: Alanine Aminotransferase 81 U/L (4-50); Albumin Level 3.4 g/dL (3.5-5.1); Alkaline Phosphatase 121 U/L (38-126); Anion Gap 7 mmol/L (8-16); Aspartate Amino Transferase 153 U/L (17-59); Bilirubin,Total 0.8 mg/dL (0.2-1.3); Blood Urea Nitrogen 31 mg/dL (9-20); Calcium 7.9 mg/dL (8.4-10.2); Carbon Dioxide 29 mmol/L (22-30); Chloride 114 mmol/L (98-107); Estimated CRCL calculation 38 ml/min; Estimated Glomerular Filt Rate 48; Glucose 110 mg/dL (75-110); Lactate Dehydrogenase 1247 U/L (313-618); Potassium 2.9 mmol/L (3.4-5.0); Sodium 150 mmol/L (137-145)
[2020-12-03 09:06] LABS: CRP 22.5 mg/dL (<1.0)
[2020-12-03 10:03] LABS: Burr Cells 1+ (NORMAL)
[2020-12-03] MEDS: DEXAMETHASONE SOD PHOS INJ 4 MG/ML VIAL 6 MG IV PUSH (10:03)
[2020-12-03] MEDS: ENOXAPARIN 30 MG/0.3 ML SYRINGE SUB-Q ×2 (10:03→21:08)
[2020-12-03] MEDS: LACTATED RINGERS 1,000 ML 100 ML IV CONT ×2 (10:04)
[2020-12-03 10:05] LABS: Platelet Estimate Adequate (Adequate)
[2020-12-03] MEDS: amLODIPine BESYLATE 5 MG TABLET PO (10:06)
[2020-12-03] MEDS: TIMOLOL MALEATE 0.5% OP SOLN 5 ML BOTTLE 1 DROP LEFT EYE ×2 (10:06→16:45)
[2020-12-03 12:00] VITALS: BP 141/94; PULSE 89; RESP 20; TEMP 37; O2SAT 91
[2020-12-03 12:14] LABS: Basophils Percent Auto 0.2 % (0.2-1.2); Eosinophils Percent Auto 0.3 % (0-4.4); Hematocrit 37.9 % (42.0-52.0); Hemoglobin 12.3 g/dL (14.0-18.0); Immature Granulocyte Absolute 0.12 K/mm3 (0.00-0.031); Immature Granulocyte Percent A 0.9 % (0-0.5); Lymphocytes Absolute Auto 0.44 K/mm3 (0.9-3.2); Lymphocytes Percent Auto 3.4 % (18.3-44.2); Mean Corpuscular HGB Conc 32.5 g/dl (32-36); Mean Corpuscular Hemoglobin 30.4 pg (26-34); Mean Corpuscular Volume 93.8 fl (80-100); Mean Platelet Volume 11.4 fl (7.4-10.4); Monocytes Absolute Auto 0.3 K/mm3 (0.1-0.6); Monocytes Percent Auto 2.7 % (2.6-8.5); Neutrophils Absolute Auto 11.9 K/mm3 (1.3-6.7); Neutrophils Percent Auto 92.5 % (45.5-73.1); Platelet Count Result 221 k/mm3 (150-375); Red Blood Count 4.04 M/mm3 (4.6-6.20); Red Cell Distribution Width 14.5 % (11.5-14.5); White Blood Count 12.8 K/mm3 (4.5-10.0)
[2020-12-03 12:25] LABS: Partial Thromboplastin Time 33.7 SECONDS (22.3-36.8)
[2020-12-03 12:35] LABS: Transferrin 155 mg/dL (206-381)
[2020-12-03 12:37] LABS: Alanine Aminotransferase 84 U/L (4-50); Albumin Level 3.5 g/dL (3.5-5.1); Alkaline Phosphatase 124 U/L (38-126); Anion Gap 10 mmol/L (8-16); Aspartate Amino Transferase 175 U/L (17-59); Bilirubin,Total 0.9 mg/dL (0.2-1.3); Blood Urea Nitrogen 32 mg/dL (9-20); Calcium 8.1 mg/dL (8.4-10.2); Carbon Dioxide 28 mmol/L (22-30); Chloride 115 mmol/L (98-107); Estimated CRCL calculation 35 ml/min; Estimated Glomerular Filt Rate 45; Glucose 111 mg/dL (75-110); Magnesium 1.9 mg/dL (1.6-2.3); Potassium 3.3 mmol/L (3.4-5.0); Sodium 153 mmol/L (137-145)
--- NOTE | 2020-12-03 13:52 | PM.IMPN ---
Progress Note: A&P Assessment and Plan (1) COVID-19: Code(s): U07.1 - COVID-19 Status: Acute Assessment and Plan: COVID-19 positive 11/28/20 -not requiring oxygen -chest x-ray stable today -Pt is having worsening fevers-ceftriaxone and azithromycin started 12/02 and vancomycin added 12/03 -His CRP is more elevated, he is now in DARRIN, has low potassium and hypernatremia. LFTs are also worse -start ceftriaxone, azithromycin and restart fluids -not requiring any oxygen, no indication for Remdesivir -will continue Lovenox -Pt is not eating. says he didn't eat for a week prior. spoke with the family who want to go forward with feedings. i do not think he will tolerate an NG tube so TPN was started. Family understands the risk of peripheral nutrition. (2) Altered mental status: Qualifiers: Altered mental status type: unspecified Qualified Code(s): R41.82 - Altered mental status, unspecified Code(s): R41.82 - Altered mental status, unspecified Status: Acute Assessment and Plan: Acute metabolic encephalopathy likely due to COVID-19 -urine drug screen, TSH, B12 are normal -CT of the brain x2 normal -he is still significantly confused -UA looks okay -Will recheck UA and draw blood cultures (3) Dehydration: Code(s): E86.0 - Dehydration Status: Acute Assessment and Plan: Fluids discontinued 12/01 and pt is now dehydrated and they were restarted 12/02 -Na going up, family now wants TPN -Will stop fluids and continue TPN. Watch sodium levels (4) DARRIN (acute kidney injury): Code(s): N17.9 - Acute kidney failure, unspecified Status: Acute Assessment and Plan: Creatinine about the same today the most recent 1.5 but still down from 2.9 on admission -see above (5) Suspected 2019 novel coronavirus infection: Code(s): Z20.822 - Contact with and (suspected) exposure to COVID-19 Status: Acute Assessment and Plan: Continue droplet isolation. (6) Normocytic anemia: Code(s): D64.9 - Anemia, unspecified Status: Acute Assessment and Plan: Acute vs. chronic? Likely multifactorial. No signs of acute blood loss. Monitor H/H, transfuse prn. (7) H/O: HTN (hypertension): Code(s): Z86.79 - Personal history of other diseases of the circulatory system Status: Chronic Assessment and Plan: Continue amlodipine -last blood pressure 141/94 -hold home losartan and hydrochlorothiazide due to DARRIN (8) Hyperlipidemia: Qualifiers: Hyperlipidemia type: unspecified Qualified Code(s): E78.5 - Hyperlipidemia, unspecified Code(s): E78.5 - Hyperlipidemia, unspecified Status: Chronic Assessment and Plan: Continue statin therapy (9) Glaucoma: Qualifiers: Glaucoma type: unspecified Laterality: unspecified laterality Qualified Code(s): H40.9 - Unspecified glaucoma Code(s): H40.9 - Unspecified glaucoma Status: Chronic Assessment and Plan: Continue glaucoma eye drops. (10) Electrolyte abnormality: Code(s): E87.8 - Other disorders of electrolyte and fluid balance, not elsewhere classified Status: Acute Assessment and Plan: Hyponatremia and hypokalemia noted on labs likely due to dehydration as stated above. TPN will be started but we will watch for refeeding syndrome or over correction of sodium. Magnesium is normal at this time. Additional Plan poor prognosis. Spoke with the son about this. The family wants pt to be a DNR. Spoke with Car who states his is on her way to the ER as we speak due to covid herself. Subjective Date/time seen: 12/03/20 13:52 Interval history: Pt is a very hard of hearing 85-year-old who is here for COVID-19. Patient was seen today and does not really hold a conversation. He states he is not any pain and is not hungry. He had to go the bathroom du
[2020-12-03 16:00] VITALS: BP 100/64; PULSE 84; RESP 20; TEMP 37.3; O2SAT 96
[2020-12-03] MEDS: KCL 20 MEQ/SW 100 ML 100 ML 50 MEQ IVPB (16:45)
[2020-12-03] MEDS: AMINO ACIDS 4.25%/D5W/LYTES/CA 2,000 ML 80 ML IV CONT (16:54)
[2020-12-03 19:14] LABS: Add Urine Microscopic? YES; Appearance Urine Clear (Clear); Bilirubin Urine Negative (Negative); Blood Urine 2+ (Negative); Color Urine Yellow (Yellow); Glucose Urine UA Negative (Negative); Ketones Urine Negative (Negative); Leukocyte Esterase Ur Negative LEU/UL (Negative); Nitrate Urine Negative (Negative); Protein Urine 2+ mg/dL (Negative); Specific Grav Ur 1.019 (1.001-1.035); Urobilinogen Urine Negative mg/dL (<2.0); WBC Urine 0-3 /hpf
--- NOTE | 2020-12-03 19:36 | PC.NURSE ---
Pt started on TPN, attempted to start a second IV at 1530 for all of the IVPBs. Unable to secure second IV; asked Radha to place second IV. Access secured and TPN started at 1700. IVPB K not on floor when attempting to start it. Called pharmacy at 1430 for K. It arrived when vanc infusing. When vanc completed, K ran. Advised power and recovery shift engineer RN that pt needs his 1600 ceftriaxone and his 1800 azithromycin. She will complete. UA sent. Secured both IVs with kerlix, tape. Informed night nurse pt pulling on lines; informed charge nurse he could definitely use a sitter.
[2020-12-03 20:00] VITALS: BP 113/74; PULSE 76; RESP 18; TEMP 36.3; O2SAT 93
[2020-12-03] MEDS: MAGNESIUM OXIDE 200 MG TABLET PO (21:08)
[2020-12-03] MEDS: ATORVASTATIN 40 MG TABLET PO (21:08)
[2020-12-03] MEDS: LATANOPROST 0.005% OP SOLN 2.5 ML BTL 1 DROP LEFT EYE (21:08)
[2020-12-03 23:55] VITALS: BP 115/68; PULSE 69; RESP 18; TEMP 36.3; O2SAT 94
[2020-12-04] MEDS: ALBUTEROL SULFATE (*SP) AEROSOL 1 PUFF 2 PUFF INHALATION ×4 (01:32→20:10)
[2020-12-04 01:35] LABS: Glucose Point of Care 152 (65-105)
[2020-12-04 04:00] VITALS: BP 121/73; PULSE 65; RESP 18; TEMP 36.6; O2SAT 93
[2020-12-04 06:41] LABS: Basophils Percent Auto 0.1 % (0.2-1.2); Hematocrit 31.3 % (42.0-52.0); Immature Granulocyte Absolute 0.08 K/mm3 (0.00-0.031); Lymphocytes Absolute Auto 0.46 K/mm3 (0.9-3.2); Lymphocytes Percent Auto 5.8 % (18.3-44.2); Mean Corpuscular HGB Conc 31.9 g/dl (32-36); Mean Corpuscular Hemoglobin 29.4 pg (26-34); Mean Corpuscular Volume 92.1 fl (80-100); Monocytes Absolute Auto 0.2 K/mm3 (0.1-0.6); Monocytes Percent Auto 2.5 % (2.6-8.5); Neutrophils Absolute Auto 7.2 K/mm3 (1.3-6.7); Neutrophils Percent Auto 90.6 % (45.5-73.1); Platelet Count Result 189 k/mm3 (150-375); Red Cell Distribution Width 14.3 % (11.5-14.5); White Blood Count 7.9 K/mm3 (4.5-10.0)
[2020-12-04 06:42] LABS: Glucose Point of Care 128 (65-105)
[2020-12-04 06:55] LABS: Triglycerides 107 mg/dL (<150)
[2020-12-04 06:56] LABS: Anion Gap 4 mmol/L (8-16); Blood Urea Nitrogen 34 mg/dL (9-20); Calcium 7.4 mg/dL (8.4-10.2); Carbon Dioxide 27 mmol/L (22-30); Chloride 119 mmol/L (98-107); Estimated CRCL calculation 47 ml/min; Estimated Glomerular Filt Rate > 60; Glucose 145 mg/dL (75-110); Magnesium 2.1 mg/dL (1.6-2.3); Potassium 3.4 mmol/L (3.4-5.0); Sodium 150 mmol/L (137-145)
[2020-12-04 08:00] VITALS: BP 109/73; PULSE 70; RESP 20; TEMP 36.2; O2SAT 94
[2020-12-04] MEDS: ENOXAPARIN 30 MG/0.3 ML SYRINGE SUB-Q ×2 (08:42→20:08)
[2020-12-04] MEDS: TIMOLOL MALEATE 0.5% OP SOLN 5 ML BOTTLE 1 DROP LEFT EYE ×2 (08:43→17:40)
[2020-12-04] MEDS: amLODIPine BESYLATE 5 MG TABLET PO (08:59)
[2020-12-04 12:00] VITALS: BP 114/68; PULSE 68; RESP 20; TEMP 36.1; O2SAT 94
[2020-12-04 13:03] LABS: Glucose Point of Care 119 (65-105)
[2020-12-04] MEDS: AMINO ACIDS 4.25%/D5W/LYTES/CA 2,000 ML 80 ML IV CONT (13:10)
--- NOTE | 2020-12-04 13:50 | PM.IMPN ---
Progress Note: A&P Assessment and Plan (1) COVID-19: Code(s): U07.1 - COVID-19 Status: Acute Assessment and Plan: COVID-19 positive 11/28/20 -not requiring oxygen -chest x-ray 12/03/20 stable -Pt is having worsening fevers-ceftriaxone and azithromycin started 12/02 and vancomycin added 12/03 -His CRP is more elevated, he is now in DARRIN, LFTs elevated and has electrolyte abnormalities -not requiring any oxygen, no indication for Remdesivir -will continue Lovenox -Pt is not eating. says he didn't eat for a week prior. the family has decided on TPN knowing the risks (2) Altered mental status: Qualifiers: Altered mental status type: unspecified Qualified Code(s): R41.82 - Altered mental status, unspecified Code(s): R41.82 - Altered mental status, unspecified Status: Acute Assessment and Plan: Acute metabolic encephalopathy likely due to COVID-19 -urine drug screen, TSH, B12 are normal -CT of the brain x2 normal -he is still significantly confused -UA x2 looks okay (3) Dehydration: Code(s): E86.0 - Dehydration Status: Acute Assessment and Plan: Fluids discontinued 12/01 and pt is now on TPN (4) DARRIN (acute kidney injury): Code(s): N17.9 - Acute kidney failure, unspecified Status: Acute Assessment and Plan: Creatinine better today, 1.1 (5) Suspected 2019 novel coronavirus infection: Code(s): Z20.822 - Contact with and (suspected) exposure to COVID-19 Status: Acute Assessment and Plan: Continue droplet isolation. (6) Normocytic anemia: Code(s): D64.9 - Anemia, unspecified Status: Acute Assessment and Plan: Acute vs. chronic? Likely multifactorial. No signs of acute blood loss. Monitor H/H, transfuse prn. (7) H/O: HTN (hypertension): Code(s): Z86.79 - Personal history of other diseases of the circulatory system Status: Chronic Assessment and Plan: Continue amlodipine -last blood pressure 114/68 -hold home losartan and hydrochlorothiazide due to DARRIN (8) Hyperlipidemia: Qualifiers: Hyperlipidemia type: unspecified Qualified Code(s): E78.5 - Hyperlipidemia, unspecified Code(s): E78.5 - Hyperlipidemia, unspecified Status: Chronic Assessment and Plan: Continue statin therapy (9) Glaucoma: Qualifiers: Glaucoma type: unspecified Laterality: unspecified laterality Qualified Code(s): H40.9 - Unspecified glaucoma Code(s): H40.9 - Unspecified glaucoma Status: Chronic Assessment and Plan: Continue glaucoma eye drops. (10) Electrolyte abnormality: Code(s): E87.8 - Other disorders of electrolyte and fluid balance, not elsewhere classified Status: Acute Assessment and Plan: Hyponatremia and hypokalemia noted on labs but are improving. Sodium 150 and potassium 3.4. Hopefully this improves with TPN. Additional Plan poor prognosis. Spoke with the son about this. The family wants pt to be a DNR. Subjective Date/time seen: 12/04/20 13:50 Interval history: Pt is a very hard of hearing 85-year-old who is here for COVID-19. Patient was seen today and does not really hold a conversation. He states he is not any pain and is not hungry again today. Exam Narrative: Exam Narrative: General:elderly man resting in bed in NAD HEENT: normocephalic, hard of hearing Neck: supple Neuro: Alert, able to tell me his name but not where he is, what year, and doesn't seem to understand what COVID is. CV:RRR. Resp:decreased breath sounds at both bases but poor respiratory effort as he doesn't follow commands Abd: Soft, non-distended. No pain to palpation. Positive bowel sounds Extremities: No swelling, erythema, or pain to palpation. Objective Data Vital Signs Vital Signs: Vital Signs - 24 hr 12/03/20 16:00 12/03/20 20:00 12/03/20 23:55 Temper
[2020-12-04 16:00] VITALS: BP 109/71; PULSE 63; RESP 20; TEMP 37; O2SAT 96
--- NOTE | 2020-12-04 16:16 | PCOTNOTE ---
The OT treatment was not completed this date. Will continue plan of care frequency.
[2020-12-04 20:00] VITALS: BP 97/62; PULSE 56; RESP 16; TEMP 36.3; O2SAT 95
[2020-12-04] MEDS: LATANOPROST 0.005% OP SOLN 2.5 ML BTL 1 DROP LEFT EYE (20:09)
[2020-12-04 23:37] LABS: Glucose Point of Care 153 (65-105)
[2020-12-04 23:52] VITALS: BP 114/73; PULSE 65; RESP 18; TEMP 36.3; O2SAT 98
[2020-12-04 23:59] LABS: Glucose Point of Care 115 (65-105)
[2020-12-05 04:00] VITALS: BP 109/67; PULSE 65; RESP 18; TEMP 36.4; O2SAT 99
[2020-12-05 05:40] LABS: Glucose Point of Care 139 (65-105)
[2020-12-05 06:17] LABS: Basophils Percent Auto 0.3 % (0.2-1.2); Hematocrit 31.1 % (42.0-52.0); Hemoglobin 9.8 g/dL (14.0-18.0); Immature Granulocyte Absolute 0.08 K/mm3 (0.00-0.031); Immature Granulocyte Percent A 1.1 % (0-0.5); Lymphocytes Absolute Auto 0.66 K/mm3 (0.9-3.2); Lymphocytes Percent Auto 9.3 % (18.3-44.2); Mean Corpuscular HGB Conc 31.5 g/dl (32-36); Mean Corpuscular Hemoglobin 29.3 pg (26-34); Mean Corpuscular Volume 92.8 fl (80-100); Mean Platelet Volume 12.7 fl (7.4-10.4); Monocytes Absolute Auto 0.2 K/mm3 (0.1-0.6); Monocytes Percent Auto 2.8 % (2.6-8.5); Neutrophils Absolute Auto 6.2 K/mm3 (1.3-6.7); Neutrophils Percent Auto 86.5 % (45.5-73.1); Platelet Count Result 166 k/mm3 (150-375); Red Blood Count 3.35 M/mm3 (4.6-6.20); Red Cell Distribution Width 14.1 % (11.5-14.5); White Blood Count 7.1 K/mm3 (4.5-10.0)
[2020-12-05 06:24] LABS: INR 1.1; Prothrombin Time 14.7 Seconds (11.1-14.7)
[2020-12-05 06:25] LABS: Partial Thromboplastin Time 32.6 SECONDS (22.3-36.8)
[2020-12-05 07:18] LABS: Alanine Aminotransferase 109 U/L (4-50); Albumin Level 2.6 g/dL (3.5-5.1); Alkaline Phosphatase 169 U/L (38-126); Anion Gap 5 mmol/L (8-16); Aspartate Amino Transferase 175 U/L (17-59); Bilirubin,Total 0.4 mg/dL (0.2-1.3); Blood Urea Nitrogen 35 mg/dL (9-20); Calcium 7.9 mg/dL (8.4-10.2); Carbon Dioxide 24 mmol/L (22-30); Chloride 117 mmol/L (98-107); Creatine Kinase 560 U/L (55-170); Estimated CRCL calculation 57 ml/min; Estimated Glomerular Filt Rate > 60; Glucose 126 mg/dL (75-110); Phosphorus 3.6 mg/dL (2.5-4.5); Potassium 3.5 mmol/L (3.4-5.0); Sodium 146 mmol/L (137-145)
[2020-12-05 07:29] LABS: Transferrin 127 mg/dL (206-381)
[2020-12-05 08:00] VITALS: BP 115/67; PULSE 58; RESP 16; TEMP 36.2; O2SAT 94
[2020-12-05] MEDS: ENOXAPARIN 30 MG/0.3 ML SYRINGE SUB-Q ×2 (09:42→23:57)
[2020-12-05] MEDS: TIMOLOL MALEATE 0.5% OP SOLN 5 ML BOTTLE 1 DROP LEFT EYE (09:50)
[2020-12-05] MEDS: ALBUTEROL SULFATE (*SP) AEROSOL 1 PUFF 2 PUFF INHALATION ×2 (09:50→23:55)
[2020-12-05 12:00] VITALS: BP 133/73; PULSE 75; RESP 16; TEMP 36.2; O2SAT 91
[2020-12-05 12:30] VITALS: BMI 25.2
[2020-12-05] MEDS: LORazepam INJ (*CRX) 2 MG/ML VIAL 0.5 MG IV PUSH ×2 (12:55→14:33)
[2020-12-05] MEDS: AMINO ACIDS 4.25%/D5W/LYTES/CA 2,000 ML 80 ML IV CONT (13:07)
--- NOTE | 2020-12-05 15:48 | PM.IMPN ---
Progress Note: A&P Assessment and Plan (1) COVID-19: Code(s): U07.1 - COVID-19 Status: Acute Assessment and Plan: COVID-19 positive 11/28/20 -not requiring oxygen -chest x-ray 12/03/20 stable -Pt was having worsening fevers 12/02/20 and ceftriaxone and azithromycin started and vancomycin added 12/03 -His Cr and electrolyte abnormalities are improving but pt is still not eating -liver enzymes about the same -not requiring any oxygen, no indication for Remdesivir -will continue Lovenox -Pt is not eating. says he didn't eat for a week prior. the family has decided on TPN knowing the risks (2) Altered mental status: Qualifiers: Altered mental status type: unspecified Qualified Code(s): R41.82 - Altered mental status, unspecified Code(s): R41.82 - Altered mental status, unspecified Status: Acute Assessment and Plan: Acute metabolic encephalopathy likely due to COVID-19 -urine drug screen, TSH, B12 are normal -will check ammonia -ck elevated likely due to agitation -CT of the brain x2 normal -he is still significantly confused -UA x2 looks okay (3) Dehydration: Code(s): E86.0 - Dehydration Status: Acute Assessment and Plan: Fluids discontinued 12/01 and pt is now on TPN (4) DARRIN (acute kidney injury): Code(s): N17.9 - Acute kidney failure, unspecified Status: Acute Assessment and Plan: Creatinine better today, 0.90 (5) Suspected 2019 novel coronavirus infection: Code(s): Z20.822 - Contact with and (suspected) exposure to COVID-19 Status: Acute Assessment and Plan: Continue droplet isolation. (6) Normocytic anemia: Code(s): D64.9 - Anemia, unspecified Status: Acute Assessment and Plan: Acute vs. chronic? Likely multifactorial. No signs of acute blood loss. Monitor H/H, transfuse prn. (7) H/O: HTN (hypertension): Code(s): Z86.79 - Personal history of other diseases of the circulatory system Status: Chronic Assessment and Plan: Continue amlodipine -last blood pressure 133/73 -hold home losartan and hydrochlorothiazide due to DARRIN (8) Hyperlipidemia: Qualifiers: Hyperlipidemia type: unspecified Qualified Code(s): E78.5 - Hyperlipidemia, unspecified Code(s): E78.5 - Hyperlipidemia, unspecified Status: Chronic Assessment and Plan: Continue statin therapy (9) Glaucoma: Qualifiers: Glaucoma type: unspecified Laterality: unspecified laterality Qualified Code(s): H40.9 - Unspecified glaucoma Code(s): H40.9 - Unspecified glaucoma Status: Chronic Assessment and Plan: Continue glaucoma eye drops. (10) Electrolyte abnormality: Code(s): E87.8 - Other disorders of electrolyte and fluid balance, not elsewhere classified Status: Acute Assessment and Plan: Hyponatremia and hypokalemia noted on labs earlier in the stay but are improving. Sodium 146 and potassium 3.5. Additional Plan Spoke with rest, family about plan of care. He suggest continuing TPN for couple days and then trying to see if he will eat. If he does not eat, they are considering hospice Subjective Date/time seen: 12/05/20 15:48 Interval history: Pt is a very hard of hearing 85-year-old who is here for COVID-19. Patient was seen today and is very confused. He keeps trying to get out of bed and has is not making any sense. He has been redirected many times and Ativan has been given. He does not appear to have any neurological deficits. He does not answer any question logically. Exam Narrative: Exam Narrative: General:elderly man that is restless and moving around his room. HEENT: normocephalic, hard of hearing Neck: supple Neuro: Alert, able to tell me his name but not where he is, what year, and doesn't seem to understand what COVID is. CV:RRR. Resp:decreased breath
[2020-12-05 17:34] VITALS: BP 110/90; PULSE 65; RESP 16; TEMP 37.1; O2SAT 98
[2020-12-05 17:52] LABS: Glucose Point of Care 136 (65-105)
[2020-12-05 20:00] VITALS: BP 118/60; PULSE 78; RESP 22; TEMP 36.3; O2SAT 97
[2020-12-05] MEDS: LATANOPROST 0.005% OP SOLN 2.5 ML BTL 1 DROP LEFT EYE (21:03)
[2020-12-05] MEDS: HALOPERIDOL LACTATE 5 MG/ML VIAL 2.5 MG IM (21:03)
[2020-12-05 23:42] LABS: Glucose Point of Care 109 (65-105)
[2020-12-06] VITALS (7 sets, daily range): BP systolic 106–150; BP diastolic 64–92; PULSE 76–96; RESP 20–22; TEMP 36.3–37.1; O2SAT 91–98
[2020-12-06] MEDS: ALBUTEROL SULFATE (*SP) AEROSOL 1 PUFF 2 PUFF INHALATION ×3 (02:26→15:28)
[2020-12-06 05:08] LABS: Glucose Point of Care 88 (65-105)
[2020-12-06 06:11] LABS: Ammonia 16 umol/L (9-30)
[2020-12-06 06:39] LABS: Hematocrit 34.7 % (42.0-52.0); Hemoglobin 11.4 g/dL (14.0-18.0); Mean Corpuscular HGB Conc 32.9 g/dl (32-36); Mean Corpuscular Hemoglobin 30.2 pg (26-34); Mean Corpuscular Volume 91.8 fl (80-100); Mean Platelet Volume 12.5 fl (7.4-10.4); Platelet Count Result 214 k/mm3 (150-375); Red Blood Count 3.78 M/mm3 (4.6-6.20); Red Cell Distribution Width 13.6 % (11.5-14.5); White Blood Count 7.9 K/mm3 (4.5-10.0)
[2020-12-06 06:48] LABS: Alanine Aminotransferase 133 U/L (4-50); Alkaline Phosphatase 239 U/L (38-126); Anion Gap 7 mmol/L (8-16); Aspartate Amino Transferase 203 U/L (17-59); Bilirubin,Total 0.7 mg/dL (0.2-1.3); Blood Urea Nitrogen 29 mg/dL (9-20); Calcium 8.2 mg/dL (8.4-10.2); Carbon Dioxide 25 mmol/L (22-30); Chloride 111 mmol/L (98-107); Creatine Kinase 963 U/L (55-170); Estimated CRCL calculation 52 ml/min; Estimated Glomerular Filt Rate > 60; Glucose 89 mg/dL (75-110); Phosphorus 3.3 mg/dL (2.5-4.5); Potassium 3.4 mmol/L (3.4-5.0); Sodium 143 mmol/L (137-145)
[2020-12-06] MEDS: ENOXAPARIN 30 MG/0.3 ML SYRINGE SUB-Q ×2 (08:48→21:33)
[2020-12-06] MEDS: TIMOLOL MALEATE 0.5% OP SOLN 5 ML BOTTLE 1 DROP LEFT EYE (08:54)
--- NOTE | 2020-12-06 12:40 | PM.IMPN ---
Progress Note: A&P Assessment and Plan (1) COVID-19: Code(s): U07.1 - COVID-19 Status: Acute Assessment and Plan: Patient presents with worsening weakness, lethargy, confusion. COVID-19 positive 11/28/20. Chest XR shows evidence of ELIZABETH pneumonia, stable. Not hypoxic or requiring oxygen thus there are no indications for steroid or antiviral therapy at this time. Continue Lovenox for DVT ppx. Patient is not eating or taking any oral medications. described he hadn't eaten for a week prior to arrival. Family decided on TPN knowing risks vs. benefits. Overall prognosis is guarded; will touch base with family regarding goals of care. (2) Altered mental status: Qualifiers: Altered mental status type: unspecified Qualified Code(s): R41.82 - Altered mental status, unspecified Code(s): R41.82 - Altered mental status, unspecified Status: Acute Assessment and Plan: Patient is quite altered today, family reports was previously pretty independent. Acute metabolic encephalopathy related to COVID-19 is suspected. Urine drug screen, TSH, ammonia and B12 are normal. UA x [address] brain x 2 without acute intracranial findings to explain his symptoms. (3) Dehydration: Code(s): E86.0 - Dehydration Status: Acute Assessment and Plan: Fluids discontinued 12/01 and pt is now on TPN since 12/03 evening. (4) DARRIN (acute kidney injury): Code(s): N17.9 - Acute kidney failure, unspecified Status: Resolved Assessment and Plan: Resolved; suspect was related to dehydration. Cr improved and normalized. (5) Normocytic anemia: Code(s): D64.9 - Anemia, unspecified Status: Acute Assessment and Plan: Chronicity is unclear with no previous labs for comparison. Hgb fluctuates but remains low but stable. No evidence of acute blood loss. Continue to monitor CBC and consider transfusion if Hgb < 7. (6) H/O: HTN (hypertension): Code(s): Z86.79 - Personal history of other diseases of the circulatory system Status: Chronic Assessment and Plan: Continue amlodipine if he will take, last . His home HCTZ and losartan are held due to DARRIN on arrival. Monitor BP and adjust treatment as needed. (7) Hyperlipidemia: Qualifiers: Hyperlipidemia type: unspecified Qualified Code(s): E78.5 - Hyperlipidemia, unspecified Code(s): E78.5 - Hyperlipidemia, unspecified Status: Chronic Assessment and Plan: Continue statin therapy if he will take. Additional Plan Patient refusing any oral intake today, food or medications. Subjective Date/time seen: 12/06/20 12:00 Interval history: Mr. Rivera is an 85yo M admitted for weakness, lethargy, confusion with COVID-19 infection. He continues to be very confused. He is speaking a bit but not able to articulate any understandable speech. He is moving around in bed, picking at bedsheets. Review of systems is unobtainable due to his mental status. Review of Systems Review of Systems: ROS unobtainable: Yes unobtainable due to mental status Exam Narrative: Exam Narrative: General: Confused elderly male rolling in bed, picking at bedsheets, groaning. HEENT: normocephalic, hard of hearing, will not open eyes. Neck: Supple Neuro: Awake, will not open eyes or look at me. Not able to answer any of my questions or follow simple commands. Difficult to assess due to confusion +. CV:Rate and rhythm regular. Resp: Decreased breath sounds, poor effort. Snoring respirations. Tolerating room air. Abd: Soft, non-distended. No apparent pain to palpation. Positive bowel sounds. E
[2020-12-06] MEDS: AMINO ACIDS 4.25%/D5W/LYTES/CA 2,000 ML 80 ML IV CONT (13:10)
[2020-12-06 13:20] LABS: Glucose Point of Care 98 (65-105)
--- NOTE | 2020-12-06 13:22 | PCNFU ---
Nutrition Follow-Up Complete: Inadequate Oral Intake as related to AMS as evidenced by poor po intake/PPN. Goal: meet estimated nutritional needs Limited progress on goal. We will continue current goal. Pt current nutrition is Heart Healthy/PPN. Last recorded weight is 80 kg, down from 81.9 kg on admit. Bowel Motility:+BM reported 12/04 Labs Reviewed:BUN 29,Alb 3.0,Hct 34.7,Hgb 11.4 Meds Noted:Refusing medications, current with Clinimix 4.25/5 at 80 ml/hr with 250 ml 20% Lipid Emulsion. Additional Notes: Nutrition follow up. Spoke with JEFFREY Joy today regarding patients nutritional status. She will be speaking with the family about patients plan of care. He has been on Clinimix 4.25/5 at 80 ml/hr with 250 ml 20% Lipid Emulsion x 4 days. He is currently receiving 1153 kcals and 82 gms protein meeting 55% of patients caloric needs. He is refusing all meals and medications at this time. Confused. Monitoring: Will monitor every Saturday and Saturday.
[2020-12-06 14:20] LABS: Triglycerides 200 mg/dL (<150)
[2020-12-06 14:52] LABS: Vancomycin Trough 5.7 ug/mL (10.0-20.0)
[2020-12-06 17:44] LABS: Glucose Point of Care 99 (65-105)
[2020-12-06] MEDS: ATORVASTATIN 40 MG TABLET PO (21:32)
[2020-12-06] MEDS: guaiFENesin/DEXTROMETHORPHAN 10 ML UDC 5 ML PO (21:32)
[2020-12-06] MEDS: LATANOPROST 0.005% OP SOLN 2.5 ML BTL 1 DROP LEFT EYE (21:32)
[2020-12-07] MEDS: HALOPERIDOL LACTATE 5 MG/ML VIAL 2.5 MG IM ×3 (00:46→14:47)
[2020-12-07 04:15] VITALS: BP 135/89; PULSE 118; RESP 24; TEMP 37.1; O2SAT 96
[2020-12-07 07:18] LABS: Anion Gap 2 mmol/L (8-16); Blood Urea Nitrogen 27 mg/dL (9-20); Calcium 8.2 mg/dL (8.4-10.2); Carbon Dioxide 28 mmol/L (22-30); Chloride 114 mmol/L (98-107); Estimated CRCL calculation 52 ml/min; Estimated Glomerular Filt Rate > 60; Glucose 108 mg/dL (75-110); Magnesium 1.7 mg/dL (1.6-2.3); Phosphorus 3.5 mg/dL (2.5-4.5); Sodium 144 mmol/L (137-145)
--- NOTE | 2020-12-07 07:36 | PC.NURSE ---
Patient got out of bed twice during the night w/o assistance though redirected both time with some difficulty. He was placed on the commode x3 though didn't use it and was incontinent of urine through the night. PPN was paused for several hours because he pulled out both of his IV's and he resisted attempts to place a new IV. With two nurses another IV was finally place and PPN was restarted. He was increasingly resistant to care after repeated IV sticks. He appeared to take one pill though refused his water and spat out cough syrup given. All other medications were refused.
[2020-12-07 08:00] VITALS: BP 129/65; PULSE 76; RESP 24; TEMP 36.6; O2SAT 98
[2020-12-07 08:14] LABS: Potassium 4.2 mmol/L (3.4-5.0)
[2020-12-07] MEDS: ENOXAPARIN 30 MG/0.3 ML SYRINGE SUB-Q ×2 (09:00→22:24)
[2020-12-07] MEDS: ALBUTEROL SULFATE (*SP) AEROSOL 1 PUFF 2 PUFF INHALATION ×3 (09:01→22:31)
--- NOTE | 2020-12-07 10:58 | P.CDI_ITS ---
CDI Query Clarification Request -Covid 19 has been documented -CXR 12/01 impression likely pneumonia r/t history of COVID 19 and 12/03 CXR i mpression stable airspace oapcities of the mid and lower lung zones, likely pneumonia. -Progress note states CXR shoes evidence of ELIZABETH pneumonia,stable Please clarify diagnosis: * Covid 19 * Covid 19 with pneumonia * Unable to determine
--- NOTE | 2020-12-07 10:58 | WPDCDIQUERY2 ---
CDI Query Clarification Request -Covid 19 has been documented -CXR 12/01 impression likely pneumonia r/t history of COVID 19 and 12/03 CXR impression stable airspace oapcities of the mid and lower lung zones, likely pneumonia. -Progress note states CXR shoes evidence of ELIZABETH pneumonia,stable Please clarify diagnosis: Covid 19 Covid 19 with pneumonia Unable to determine
[2020-12-07 12:00] VITALS: PULSE 106; RESP 26; TEMP 36.9; O2SAT 97
--- NOTE | 2020-12-07 12:26 | PM.IMPN ---
Progress Note: A&P Assessment and Plan (1) Altered mental status: Qualifiers: Altered mental status type: unspecified Qualified Code(s): R41.82 - Altered mental status, unspecified Code(s): R41.82 - Altered mental status, unspecified Status: Acute Assessment and Plan: Patient is still quite altered today, family reports was previously pretty independent. Acute metabolic encephalopathy related to COVID-19 is suspected. Urine drug screen, TSH, ammonia and B12 are normal. UA x [address] brain x 2 without acute intracranial findings to explain his symptoms. Patient is not eating or taking any oral medications. described he hadn't eaten for a week prior to arrival. Family decided on PPN knowing risks vs. benefits. Overall prognosis is guarded. Discussed patient's condition and further goals of care at length with patient's son, Leo, over the phone today. I explain that his father is not making improvements despite being on PPN, refusing oral intake, and he is still quite confused and agitated. He verbalizes understanding and wishes to speak with his mother, Kinsey, for further planning prior to meeting with hospice. Anticipate hospice referral tomorrow and I have made care coordination aware. (2) Pneumonia due to COVID-19 virus: Code(s): U07.1 - COVID-19; J12.82 - Pneumonia due to coronavirus disease 2019 Status: Acute Assessment and Plan: Patient presents with worsening weakness, lethargy, confusion. COVID-19 positive 11/28/20. Chest XR shows evidence of ELIZABETH pneumonia. Not hypoxic or requiring oxygen thus there are no indications for steroid or antiviral therapy at this time. Continue Lovenox for DVT ppx. (3) Dehydration: Code(s): E86.0 - Dehydration Status: Acute Assessment and Plan: Fluids discontinued 12/01 and pt is now on PPN since 12/03 evening. (4) DARRIN (acute kidney injury): Code(s): N17.9 - Acute kidney failure, unspecified Status: Resolved Assessment and Plan: Resolved; suspect was related to dehydration. Cr improved and normalized with hydration. (5) Normocytic anemia: Code(s): D64.9 - Anemia, unspecified Status: Acute Assessment and Plan: Chronicity is unclear with no previous labs for comparison. Hgb fluctuates but remains low but stable. No evidence of acute blood loss. Continue to monitor CBC and consider transfusion if Hgb < 7. (6) H/O: HTN (hypertension): Code(s): Z86.79 - Personal history of other diseases of the circulatory system Status: Chronic Assessment and Plan: Continue amlodipine if he will take, last 129/65. His home HCTZ and losartan are held due to DARRIN on arrival. Monitor BP and adjust treatment as needed. (7) Hyperlipidemia: Qualifiers: Hyperlipidemia type: unspecified Qualified Code(s): E78.5 - Hyperlipidemia, unspecified Code(s): E78.5 - Hyperlipidemia, unspecified Status: Chronic Assessment and Plan: Continue statin therapy if he will take. Additional Plan Patient refusing any oral intake today, food or medications. Discussed this with patient's son. Subjective Date/time seen: 12/07/20 12:15 Interval history: Mr. Rivera is an 85yo M admitted for weakness, lethargy, confusion with COVID-19 infection. He continues to be very confused. He is speaking a bit but not able to articulate any understandable speech. He is moving around in bed, picking at bedsheets. Review of systems is unobtainable due to his mental status. Review of Systems Review of Systems: ROS unobtainable: Yes unobtai
[2020-12-07 12:57] LABS: Glucose Point of Care 105 (65-105)
--- NOTE | 2020-12-07 15:19 | PCPTNOTE ---
Attempted PT treatment. Pt was drowsy and was turning over in bed. Pt says no, no ,no when attempting to encourage pt to participate w/ therapy. Will try again tomorrow.
[2020-12-07 16:00] VITALS: BP 150/80; PULSE 106; RESP 26; TEMP 37.4; O2SAT 93
[2020-12-07 17:16] LABS: Glucose Point of Care 94 (65-105)
[2020-12-07] MEDS: TIMOLOL MALEATE 0.5% OP SOLN 5 ML BOTTLE 1 DROP LEFT EYE (18:52)
[2020-12-07 20:00] VITALS: BP 137/88; PULSE 108; RESP 24
[2020-12-07] MEDS: LATANOPROST 0.005% OP SOLN 2.5 ML BTL 1 DROP LEFT EYE (22:24)
[2020-12-07] MEDS: MAGNESIUM OXIDE 200 MG TABLET PO (22:24)
[2020-12-07] MEDS: ATORVASTATIN 40 MG TABLET PO (22:29)
[2020-12-07] MEDS: AMINO ACIDS 4.25%/D5W/LYTES/CA 2,000 ML 80 ML IV CONT (23:26)
[2020-12-08] VITALS: BP 136/82; PULSE 100; RESP 24; TEMP 37
[2020-12-08 04:00] VITALS: BP 152/88; PULSE 100; RESP 24; TEMP 37.4; O2SAT 95
[2020-12-08 06:22] LABS: Estimated CRCL calculation 44 ml/min; Estimated Glomerular Filt Rate 58; Phosphorus 2.9 mg/dL (2.5-4.5); Triglycerides 120 mg/dL (<150)
--- NOTE | 2020-12-08 07:37 | PC.NURSE ---
Patient appeared very agitated through most of the night, pulling off his clothing and everything on his body. His IV was wrapped and taped though he eventually pulled that loose just after midnight. His behavior made it prohibitive for starting another IV, so his PPN and and antibiotics were not given. An attempt was made to give him IV tylenol to see if his behavior might be pain related, but his was when his IV was discovered to be pulled away from it's insertion site. Around 0300, Jian PHELPS found time to chart in his room, allowing him to sit on the edge of his bed. This appeared to calm him somewhat and he stood up a few times with assistance. He was directed to the commode both of these times and he urinated on his second time to the commode. Afterwards he appeared to be sleeping for about 2.5 hours before pulling off his gown and blankets again, continuing his previous behavior.
[2020-12-08 08:00] VITALS: PULSE 100; RESP 24; O2SAT 95
[2020-12-08] MEDS: TIMOLOL MALEATE 0.5% OP SOLN 5 ML BOTTLE 1 DROP LEFT EYE (08:37)
[2020-12-08] MEDS: ENOXAPARIN 30 MG/0.3 ML SYRINGE SUB-Q (08:37)
--- NOTE | 2020-12-08 14:12 | PCOTNOTE ---
Attempted to see patient this pm, however patient and family speaking with hospice at this time.
--- NOTE | 2020-12-08 15:59 | PM.DS ---
DS: Admitting Diagnosis Admitting Diagnosis Admitting Diagnosis: encephalopathy, dehydration DS: Discharge Diagnosis Discharge Diagnosis (1) Altered mental status: Qualifiers: Altered mental status type: unspecified Qualified Code(s): R41.82 - Altered mental status, unspecified Code(s): R41.82 - Altered mental status, unspecified Status: Acute Assessment and Plan: Date of Admission 11/28/20 Date of Discharge/DOS 12/08/20 Mr. Rivera is an 85yo M with history of hypertension and dyslipidemia who presented to the ED for evaluation of confusion and generalized weakness. Family noted he had not eaten or walked in days prior to arrival. COVID-19 positive on arrival 11/28/20. CT brain x 2 demonstrated no acute intracranial findings to explain his symptoms. Respiratory status was stable, not hypoxic during his admission. It is suspected the patient is suffering encephalopathy secondary to COVID-19. He was started on broad antibiotics with azithromycin, rocephin, vancomycin. Family expressed wishes to start peripheral parenteral nutrition in attempts to promote his recovery however Jennifer continued to refuse any oral intake. He became more restless and confused. Detailed discussions were held with family members regarding his guarded prognosis and overall goals of care. Family opted for hospice care. Mr. Rivera requires inpatient hospice services due to uncontrolled restlessness and confusion. He is discharged to inpatient hospice services with [facility] 12/08/20 and I have discussed these updates with patient's , Kinsey, and son, Leo, at the bedside. Patient is still quite altered today, family reports he was previously pretty independent. Acute metabolic encephalopathy related to COVID-19 is suspected. Urine drug screen, TSH, ammonia and B12 are normal. UA x [address] brain x 2 without acute intracranial findings to explain his symptoms. Patient is not eating or taking any oral medications. described he hadn't eaten for a week prior to arrival. Patient tolerated PPN for several days but still with no oral intake. Family opted for hospice services due to failure to thrive, restlessness and confusion. (2) Pneumonia due to COVID-19 virus: Code(s): U07.1 - COVID-19; J12.82 - Pneumonia due to coronavirus disease 2019 Status: Acute Assessment and Plan: Patient presents with worsening weakness, lethargy, confusion. COVID-19 positive 11/28/20. Chest XR shows evidence of ELIZABETH pneumonia. He was treated with antibiotics due to his clinical decompensation. Not hypoxic or requiring oxygen thus there are no indications for steroid or antiviral therapy at this time. He was treated with Lovenox for DVT ppx. (3) Dehydration: Code(s): E86.0 - Dehydration Status: Acute Assessment and Plan: Fluids discontinued 12/01 and pt was treated with PPN 12/03 - 12/08. (4) DARRIN (acute kidney injury): Code(s): N17.9 - Acute kidney failure, unspecified Status: Resolved Assessment and Plan: Resolved; suspect was related to dehydration. Cr improved and normalized with hydration. (5) Normocytic anemia: Code(s): D64.9 - Anemia, unspecified Status: Acute Assessment and Plan: Chronicity is unclear with no previous labs for comparison. Hgb fluctuates but remains low but stable. No evidence of acute blood loss. (6) H/O: HTN (hypertension): Code(s): Z86.79 - Personal history of other diseases of the circulatory system Status: Chronic Assessment and Plan: Continue amlodipine if he will take. His home HCTZ and losartan are held due to DARRIN on arrival.
== END 2020-12-08 15:07 | disposition hospice, inpatient (51) | DRG 177 ==
LOC: ANHED 19:57 → ANH3MEDSUR 20:09
PROVIDERS: Physician Assistant; Admitting Provider Family Medicine; Emergency Provider Emergency Medicine; PCP Internal Medicine; Visit Provider Physician Assistant
DX: U07.1 COVID-19 (principal); G93.41 Metabolic encephalopathy; J12.82 Pneumonia due to coronavirus disease 2019; N17.9 Acute kidney failure, unspecified; E87.1 Hypo-osmolality and hyponatremia; E87.6 Hypokalemia; E86.0 Dehydration; H40.9 Unspecified glaucoma; E78.5 Hyperlipidemia, unspecified; D64.9 Anemia, unspecified; F03.90 Unspecified dementia, unspecified severity, without behavioral disturbance, psychotic disturbance, mood disturbance, and anxiety; Z66 Do not resuscitate; Z79.899 Other long term (current) drug therapy; Z86.79 Personal history of other diseases of the circulatory system
CPT/HCPCS: 36415; 70450; 71045; 71046; 76705; 80048; 80053; 80076; 80202; 80307; 81001; 82140; 82550; 82565; 82607; 82728; 82746; 82948; 83615; 83735; 84100; 84443; 84466; 84478; 85025; 85027; 85055; 85610; 85730; 86140; 87040; 93005; 94640; 96360; 97110; 97116; 97161; 97165; 97530; 97535; 99285; A9270; C9803; J0131; J0456; J0696; J1100; J1630; J1650; J2060; J3370; J3480; J7030; J7060; J7120; J8540; U0003; U0005

== ENCOUNTER 2020-12-08 14:40 | HOS | payer OTHER, MEDICARE, BC, SELFPAY ==
[2020-12-08 15:51] VITALS: BMI 24.1
[2020-12-08 17:29] VITALS: PULSE 97; RESP 22
[2020-12-08] MEDS: HYDROmorphone HCL/PF (*CRX) 50 MG in SODIUM CHLORIDE 0.9% IV 95 ML IV CONT (17:29)
--- NOTE | 2020-12-08 19:36 | PM.IMHP ---
H&P: HPI History of Present Illness Date/Time: 12/08/20 19:36 Chief Complaint: uncontrolled restlessness Narrative: Jennifer Rivera is a 85 year old male who was found at home lying next to his bed. He has not been feeling well for a few days apparently and not eating and drinking as well as usual. He was found to have bilateral pneumonia and acute kidney failure with a creatinine of 2.9 on November 28. He was admitted and found to have positive COVID swab. He was treated with antibiotics for community-acquired pneumonia as well as rim-severe and steroids. He remained with altered mental status throughout hospitalization. He was unable to eat and drink. He remained oriented to person only with intermittent agitation. He received peripheral IV nutrition and IV fluids. His creatinine improved to 1.2 by day of admission hospice. Because of his failure to improve and the family's desire not to proceed with tube feedings and because of his restlessness and discomfort he was admitted to inpatient hospice for symptom control. Review of Systems Review of Systems: ROS unobtainable: Yes unobtainable due to medical condition PMFSH Past Medical History Medical History Glaucoma H/O: HTN (hypertension) Hyperlipidemia Family History Family History (Updated 12/08/20 @ 19:36 by Herbert Hendricks MD) Father No problems noted. Mother No problems noted. Social History Social History Smoking status: Never smoker Alcohol intake: former Substance use: never Gender identity (if verbalized by the patient): Male Spiritual care concerns: No Meds Home Medications and Allergies Home Medications Medication Instructions Recorded Confirmed Type Tylenol 500 mg PO Q8H PRN 11/28/20 11/28/20 History amlodipine 5 mg PO DAILY 11/28/20 11/28/20 History aspirin 81 mg PO DAILY 11/28/20 11/28/20 History atorvastatin 40 mg PO HS 11/28/20 11/28/20 History hydrochlorothiazide 12.5 mg PO DAILY 11/28/20 11/28/20 History latanoprost 1 drp LEFT EYE HS 11/28/20 11/28/20 History losartan-hydrochlorothiazide 1 tablet PO DAILY 11/28/20 11/28/20 History timolol maleate 1 drp LEFT EYE BID 11/28/20 11/28/20 History Allergies Allergy/AdvReac Type Severity Reaction Status Date / Time No Known Allergies Allergy Verified 11/28/20 20:45 Vital Signs Vital Signs - 24 hr 12/08/20 17:29 Pulse Rate 97 Respiratory Rate 22 H Exam Narrative: Exam Narrative: HEENT: PERRL, sclerae nonicteric, pharyngeal mucosa pink and intact NECK: No JVD CHEST: Coarse breath sounds bilaterally with mild tachypnea HEART: NL S1/S2, regular, no murmur ABDOMEN: BS+, soft, nontender, no mass, no bruits EXTREMITIES: No cyanosis, edema, or clubbing NEUROLOGIC: CN intact and symmetric to inspection. MUSCULOSKELETAL: Tone and strength symmetric. PSYCH: Drowsy but arouses easily. Oriented to person only. Very restless. Assessment and Plan Assessment and plan (1) Palliative care by specialist: Code(s): Z51.5 - Encounter for palliative care Status: Acute Assessment and Plan: Meets general inpatient criteria due to uncontrolled restlessness and confusion requiring continuous narcotic infusion and intermittent p.r.n. benzodiazepine bolus for control Hydromorphone 0.25 milligrams/hour infusion with 1 mg IV every 2 hours as needed Lorazepam 1 mg IV Q 4 hours as needed Remainder palliative regimen as ordered (2) Pneumonia due to COVID-19 virus: Code(s): U07.1 - COVID-19; J12.82 - Pneumonia due to coronavirus disease 2019 Status: Acute (3) DARRIN (acute kidney injury): Code(s): N17.9 - Acute kidney failure, unspecified Status: Resolved (4) Encephalopathy: Code(s): G93.40 - Encephalopathy, unspecified Status: Acute (5) Dysphagia: Qualifiers: Dyspha
[2020-12-08] MEDS: LORazepam INJ (*CRX) 2 MG/ML VIAL 1 MG IV PUSH (20:01)
[2020-12-08 22:00] VITALS: BP 142/80; PULSE 107; RESP 18; TEMP 37.2; O2SAT 95
[2020-12-09 08:00] VITALS: PULSE 99; RESP 18; O2SAT 95
[2020-12-09 16:36] VITALS: PULSE 99; RESP 18
[2020-12-09] MEDS: HYDROmorphone HCL/PF (*CRX) 50 MG in SODIUM CHLORIDE 0.9% IV 95 ML IV CONT (16:36)
--- NOTE | 2020-12-09 18:19 | PM.IMPN ---
Progress Note: A&P Assessment and Plan (1) Palliative care by specialist: Code(s): Z51.5 - Encounter for palliative care Status: Acute Assessment and Plan: Meets general inpatient criteria due to uncontrolled restlessness and confusion requiring continuous narcotic infusion and intermittent p.r.n. benzodiazepine bolus for control Hydromorphone 0.25 milligrams/hour infusion with 1 mg IV every 2 hours as needed Lorazepam 1 mg IV Q 4 hours as needed Remainder palliative regimen as ordered (2) Pneumonia due to COVID-19 virus: Code(s): U07.1 - COVID-19; J12.82 - Pneumonia due to coronavirus disease 2019 Status: Acute (3) DARRIN (acute kidney injury): Code(s): N17.9 - Acute kidney failure, unspecified Status: Resolved (4) Encephalopathy: Code(s): G93.40 - Encephalopathy, unspecified Status: Acute (5) Dysphagia: Qualifiers: Dysphagia type: unspecified Qualified Code(s): R13.10 - Dysphagia, unspecified Code(s): R13.10 - Dysphagia, unspecified Status: Acute Subjective Date/time seen: 12/09/20 18:19 Interval history: Admitted to inpatient hospice 12/08 due to late cx's of COVID-19, including encephalopathy and restlessness. 12/09: Much more comfortable today. No PO intake. Review of Systems Review of Systems: ROS unobtainable: Yes unobtainable due to medical condition Exam Narrative: Exam Narrative: HEENT: PERRL, sclerae nonicteric, pharyngeal mucosa pink and intact NECK: No JVD CHEST: Coarse breath sounds bilaterally with mild tachypnea HEART: NL S1/S2, regular, no murmur ABDOMEN: BS+, soft, nontender, no mass, no bruits EXTREMITIES: No cyanosis, edema, or clubbing NEUROLOGIC: CN intact and symmetric to inspection. MUSCULOSKELETAL: Tone and strength symmetric. PSYCH: Does not arouse to verbal or tactile stimuli Objective Data Vital Signs Vital Signs: Vital Signs - 24 hr 12/08/20 22:00 12/09/20 16:36 Temperature 98.9 F Pulse Rate 107 H 99 Respiratory Rate 18 99 H Blood Pressure 142/80 H Pulse Oximetry 95 Intake/Output Intake/Output: Intake & Output 12/06/20 12/07/20 12/08/20 12/09/20 23:59 23:59 23:59 23:59 Intake Total 11.5 Balance 11.5 Meds/Results Medications: Active Medications Generic Name Dose Route Start Last Admin Trade Name Freq PRN Reason Stop Dose Admin Artificial Tears 1 - 2 drop 12/08/20 15:31 Artificial Tears Op Soln 15 Ml Bottle EACH EYE BID PRN Dry Eye(s) Bisacodyl 10 mg 12/08/20 15:31 Bisacodyl 10 Mg Suppository RECTAL QAM PRN Constipation Glycopyrrolate 0.1 mg 12/08/20 15:31 Glycopyrrolate Inj (*Sp) 0.2 Mg/Ml Vial IV PUSH Q4H PRN Secretions Hydromorphone HCl 1 mg 12/08/20 15:31 Hydromorphone Hcl Inj (*Crx) 1 Mg/Ml Syr IV PUSH Q2H PRN Pain Rated 7-10 Hydromorphone HCl 50 mg/ 100 mls @ 0.5 mls/hr 12/08/20 16:30 12/09/20 16:36 Sodium Chloride IV CONT 0.25 mg/hr .Q24H JENSEN 0.5 mls/hr Administration 0.25 MG/HR Lorazepam 1 mg 12/08/20 15:31 12/08/20 20:01 Lorazepam Inj (*Crx) 2 Mg/Ml Vial IV PUSH 1 mg Q4H PRN Administration Agitation Prochlorperazine Edisylate 10 mg 12/08/20 15:31 Prochlorperazine Edisylate 10 Mg/2 Ml Vial IV PUSH Q6H PRN Nausea And Vomiting
[2020-12-09 20:00] VITALS: BP 173/99; PULSE 106; RESP 20; TEMP 36.5; O2SAT 92
[2020-12-09] MEDS: LORazepam INJ (*CRX) 2 MG/ML VIAL 1 MG IV PUSH (22:47)
[2020-12-10] MEDS: LORazepam INJ (*CRX) 2 MG/ML VIAL 1 MG IV PUSH ×4 (04:22→21:28)
--- NOTE | 2020-12-10 14:21 | PM.IMPN ---
Progress Note: A&P Assessment and Plan (1) Palliative care by specialist: Code(s): Z51.5 - Encounter for palliative care Status: Acute Assessment and Plan: Meets general inpatient criteria due to uncontrolled restlessness and confusion requiring continuous narcotic infusion and intermittent p.r.n. benzodiazepine bolus for control Hydromorphone 0.25 milligrams/hour infusion with 1 mg IV every 2 hours as needed Lorazepam 1 mg IV Q 4 hours as needed Remainder palliative regimen as ordered (2) Pneumonia due to COVID-19 virus: Code(s): U07.1 - COVID-19; J12.82 - Pneumonia due to coronavirus disease 2019 Status: Acute (3) DARRIN (acute kidney injury): Code(s): N17.9 - Acute kidney failure, unspecified Status: Resolved (4) Encephalopathy: Code(s): G93.40 - Encephalopathy, unspecified Status: Acute (5) Dysphagia: Qualifiers: Dysphagia type: unspecified Qualified Code(s): R13.10 - Dysphagia, unspecified Code(s): R13.10 - Dysphagia, unspecified Status: Acute Subjective Date/time seen: 12/10/20 14:21 Interval history: Admitted to inpatient hospice 12/08 due to late cx's of COVID-19, including encephalopathy and restlessness. 12/10: Remains comfortable today. No PO intake. Review of Systems Review of Systems: ROS unobtainable: Yes unobtainable due to medical condition Exam Narrative: Exam Narrative: HEENT: PERRL, sclerae nonicteric, pharyngeal mucosa pink and intact NECK: No JVD CHEST: Coarse breath sounds bilaterally with mild tachypnea HEART: NL S1/S2, regular, no murmur ABDOMEN: BS+, soft, nontender, no mass, no bruits EXTREMITIES: No cyanosis, edema, or clubbing NEUROLOGIC: CN intact and symmetric to inspection. MUSCULOSKELETAL: Tone and strength symmetric. PSYCH: Does not arouse to verbal or tactile stimuli Objective Data Vital Signs Vital Signs: Vital Signs - 24 hr 12/09/20 16:36 12/09/20 20:00 Temperature 97.7 F Pulse Rate 99 106 H Respiratory Rate 99 H 20 Blood Pressure 173/99 H Pulse Oximetry 92 Intake/Output Intake/Output: Intake & Output 12/07/20 12/08/20 12/09/20 12/10/20 23:59 23:59 23:59 23:59 Intake Total 11.5 Balance 11.5 Meds/Results Medications: Active Medications Generic Name Dose Route Start Last Admin Trade Name Freq PRN Reason Stop Dose Admin Artificial Tears 1 - 2 drop 12/08/20 15:31 Artificial Tears Op Soln 15 Ml Bottle EACH EYE BID PRN Dry Eye(s) Bisacodyl 10 mg 12/08/20 15:31 Bisacodyl 10 Mg Suppository RECTAL QAM PRN Constipation Glycopyrrolate 0.1 mg 12/08/20 15:31 Glycopyrrolate Inj (*Sp) 0.2 Mg/Ml Vial IV PUSH Q4H PRN Secretions Hydromorphone HCl 1 mg 12/08/20 15:31 Hydromorphone Hcl Inj (*Crx) 1 Mg/Ml Syr IV PUSH Q2H PRN Pain Rated 7-10 Hydromorphone HCl 50 mg/ 100 mls @ 0.5 mls/hr 12/08/20 16:30 12/09/20 16:36 Sodium Chloride IV CONT 0.25 mg/hr .Q24H JENSEN 0.5 mls/hr Administration 0.25 MG/HR Lorazepam 1 mg 12/08/20 15:31 12/10/20 11:19 Lorazepam Inj (*Crx) 2 Mg/Ml Vial IV PUSH 1 mg Q4H PRN Administration Agitation Prochlorperazine Edisylate 10 mg 12/08/20 15:31 Prochlorperazine Edisylate 10 Mg/2 Ml Vial IV PUSH Q6H PRN Nausea And Vomiting
[2020-12-10 14:28] VITALS: BP 137/72; PULSE 78; RESP 18; TEMP 36.4; O2SAT 96
[2020-12-10 16:10] VITALS: PULSE 104; RESP 24
[2020-12-10] MEDS: HYDROmorphone HCL/PF (*CRX) 50 MG in SODIUM CHLORIDE 0.9% IV 95 ML IV CONT (16:10)
[2020-12-11] MEDS: LORazepam INJ (*CRX) 2 MG/ML VIAL 1 MG IV PUSH ×3 (05:46→15:50)
[2020-12-11 06:00] VITALS: BP 141/78; PULSE 92; RESP 16; TEMP 36; O2SAT 95
--- NOTE | 2020-12-11 13:41 | PM.IMPN ---
Progress Note: A&P Assessment and Plan (1) Palliative care by specialist: Code(s): Z51.5 - Encounter for palliative care Status: Acute Assessment and Plan: Meets general inpatient criteria due to uncontrolled restlessness and confusion requiring continuous narcotic infusion and intermittent p.r.n. benzodiazepine bolus for control Hydromorphone 0.25 milligrams/hour infusion with 1 mg IV every 2 hours as needed Lorazepam 1 mg IV Q 4 hours as needed Remainder palliative regimen as ordered (2) Pneumonia due to COVID-19 virus: Code(s): U07.1 - COVID-19; J12.82 - Pneumonia due to coronavirus disease 2019 Status: Acute (3) DARRIN (acute kidney injury): Code(s): N17.9 - Acute kidney failure, unspecified Status: Resolved (4) Encephalopathy: Code(s): G93.40 - Encephalopathy, unspecified Status: Acute (5) Dysphagia: Qualifiers: Dysphagia type: unspecified Qualified Code(s): R13.10 - Dysphagia, unspecified Code(s): R13.10 - Dysphagia, unspecified Status: Acute Subjective Date/time seen: 12/11/20 13:41 Interval history: Admitted to inpatient hospice 12/08 due to late cx's of COVID-19, including encephalopathy and restlessness. 12/11: Remains comfortable today. No PO intake. Review of Systems Review of Systems: ROS unobtainable: Yes unobtainable due to medical condition Exam Narrative: Exam Narrative: HEENT: PERRL, sclerae nonicteric, pharyngeal mucosa pink and intact NECK: No JVD CHEST: Coarse breath sounds bilaterally with mild tachypnea HEART: NL S1/S2, regular, no murmur ABDOMEN: BS+, soft, nontender, no mass, no bruits EXTREMITIES: No cyanosis, edema, or clubbing NEUROLOGIC: CN intact and symmetric to inspection. MUSCULOSKELETAL: Tone and strength symmetric. PSYCH: Does not arouse to verbal or tactile stimuli Objective Data Vital Signs Vital Signs: Vital Signs - 24 hr 12/10/20 14:28 12/10/20 16:10 12/11/20 06:00 Temperature 97.5 F L 96.8 F L Pulse Rate 78 104 H 92 Respiratory Rate 18 24 H 16 Blood Pressure 137/72 141/78 H Pulse Oximetry 96 95 Intake/Output Intake/Output: Intake & Output 12/08/20 12/09/20 12/10/20 12/11/20 23:59 23:59 23:59 23:59 Intake Total 11.5 100 Balance 11.5 100 Meds/Results Medications: Active Medications Generic Name Dose Route Start Last Admin Trade Name Freq PRN Reason Stop Dose Admin Artificial Tears 1 - 2 drop 12/08/20 15:31 Artificial Tears Op Soln 15 Ml Bottle EACH EYE BID PRN Dry Eye(s) Bisacodyl 10 mg 12/08/20 15:31 Bisacodyl 10 Mg Suppository RECTAL QAM PRN Constipation Glycopyrrolate 0.1 mg 12/08/20 15:31 Glycopyrrolate Inj (*Sp) 0.2 Mg/Ml Vial IV PUSH Q4H PRN Secretions Hydromorphone HCl 1 mg 12/08/20 15:31 Hydromorphone Hcl Inj (*Crx) 1 Mg/Ml Syr IV PUSH Q2H PRN Pain Rated 7-10 Hydromorphone HCl 50 mg/ 100 mls @ 0.5 mls/hr 12/08/20 16:30 12/10/20 16:10 Sodium Chloride IV CONT 0.25 mg/hr .Q24H JENSEN 0.5 mls/hr Administration 0.25 MG/HR Lorazepam 1 mg 12/08/20 15:31 12/11/20 10:00 Lorazepam Inj (*Crx) 2 Mg/Ml Vial IV PUSH 1 mg Q4H PRN Administration Agitation Prochlorperazine Edisylate 10 mg 12/08/20 15:31 Prochlorperazine Edisylate 10 Mg/2 Ml Vial IV PUSH Q6H PRN Nausea And Vomiting
[2020-12-11 14:45] VITALS: BP 166/102; PULSE 102; RESP 20; TEMP 36.5; O2SAT 93
[2020-12-11 16:02] VITALS: PULSE 88; RESP 14
[2020-12-11] MEDS: HYDROmorphone HCL/PF (*CRX) 50 MG in SODIUM CHLORIDE 0.9% IV 95 ML IV CONT (16:02)
[2020-12-11 20:00] VITALS: BP 150/94; PULSE 97; RESP 18; TEMP 36.2; O2SAT 90
[2020-12-11] MEDS: GLYCOPYRROLATE INJ (*SP) 0.2 MG/ML VIAL 0.1 MG IV PUSH (21:42)
[2020-12-11] MEDS: HYDROmorphone HCL INJ (*CRX) 1 MG/ML SYR IV PUSH (21:44)
[2020-12-12] MEDS: HYDROmorphone HCL INJ (*CRX) 1 MG/ML SYR IV PUSH (06:50)
[2020-12-12 08:00] VITALS: BP 144/86; PULSE 88; RESP 12; TEMP 36.5; O2SAT 96
[2020-12-12] MEDS: LORazepam INJ (*CRX) 2 MG/ML VIAL 1 MG IV PUSH ×2 (11:01→20:19)
[2020-12-12] MEDS: HYDROmorphone HCL/PF (*CRX) 50 MG in SODIUM CHLORIDE 0.9% IV 95 ML IV CONT (16:09)
--- NOTE | 2020-12-12 17:28 | PM.IMPN ---
Progress Note: A&P Assessment and Plan (1) Palliative care by specialist: Code(s): Z51.5 - Encounter for palliative care Status: Acute Assessment and Plan: Meets general inpatient criteria due to uncontrolled restlessness and confusion requiring continuous narcotic infusion and intermittent p.r.n. benzodiazepine bolus for control Hydromorphone 0.25 milligrams/hour infusion with 1 mg IV every 2 hours as needed Lorazepam 1 mg IV Q 4 hours as needed Remainder palliative regimen as ordered (2) Pneumonia due to COVID-19 virus: Code(s): U07.1 - COVID-19; J12.82 - Pneumonia due to coronavirus disease 2019 Status: Acute (3) DARRIN (acute kidney injury): Code(s): N17.9 - Acute kidney failure, unspecified Status: Resolved (4) Encephalopathy: Code(s): G93.40 - Encephalopathy, unspecified Status: Acute (5) Dysphagia: Qualifiers: Dysphagia type: unspecified Qualified Code(s): R13.10 - Dysphagia, unspecified Code(s): R13.10 - Dysphagia, unspecified Status: Acute Subjective Date/time seen: 12/12/20 17:28 Interval history: Admitted to inpatient hospice 12/08 due to late cx's of COVID-19, including encephalopathy and restlessness. 12/12: Remains comfortable today. PRN lorazepam last given at 11 am. Review of Systems Review of Systems: ROS unobtainable: Yes unobtainable due to medical condition Exam Narrative: Exam Narrative: HEENT: PERRL, sclerae nonicteric, pharyngeal mucosa pink and intact NECK: No JVD CHEST: Coarse breath sounds bilaterally with mild tachypnea HEART: NL S1/S2, regular, no murmur ABDOMEN: BS+, soft, nontender, no mass, no bruits EXTREMITIES: No cyanosis, edema, or clubbing NEUROLOGIC: CN intact and symmetric to inspection. MUSCULOSKELETAL: Tone and strength symmetric. PSYCH: Does not arouse to verbal or tactile stimuli Objective Data Vital Signs Vital Signs: Vital Signs - 24 hr 12/11/20 20:00 12/12/20 08:00 Temperature 97.1 F L 97.7 F Pulse Rate 97 88 Respiratory Rate 18 12 Blood Pressure 150/94 H 144/86 H Pulse Oximetry 90 96 Intake/Output Intake/Output: Intake & Output 12/09/20 12/10/20 12/11/20 12/12/20 23:59 23:59 23:59 23:59 Intake Total 11.5 100 100 100 Balance 11.5 100 100 100 Meds/Results Medications: Active Medications Generic Name Dose Route Start Last Admin Trade Name Freq PRN Reason Stop Dose Admin Artificial Tears 1 - 2 drop 12/08/20 15:31 Artificial Tears Op Soln 15 Ml Bottle EACH EYE BID PRN Dry Eye(s) Bisacodyl 10 mg 12/08/20 15:31 Bisacodyl 10 Mg Suppository RECTAL QAM PRN Constipation Glycopyrrolate 0.1 mg 12/08/20 15:31 12/11/20 21:42 Glycopyrrolate Inj (*Sp) 0.2 Mg/Ml Vial IV PUSH 0.1 mg Q4H PRN Administration Secretions Hydromorphone HCl 1 mg 12/08/20 15:31 12/12/20 06:50 Hydromorphone Hcl Inj (*Crx) 1 Mg/Ml Syr IV PUSH 1 mg Q2H PRN Administration Pain Rated 7-10 Hydromorphone HCl 50 mg/ 100 mls @ 0.5 mls/hr 12/08/20 16:30 12/12/20 16:09 Sodium Chloride IV CONT 0.25 mg/hr .Q24H JENSEN 0.5 mls/hr Administration 0.25 MG/HR Lorazepam 1 mg 12/08/20 15:31 12/12/20 11:01 Lorazepam Inj (*Crx) 2 Mg/Ml Vial IV PUSH 1 mg Q4H PRN Administration Agitation Prochlorperazine Edisylate 10 mg 12/08/20 15:31 Prochlorperazine Edisylate 10 Mg/2 Ml Vial IV PUSH Q6H PRN Nausea And Vomiting
[2020-12-12 20:00] VITALS: BP 149/74; PULSE 100; RESP 16; TEMP 36.8; O2SAT 96
[2020-12-13] MEDS: HYDROmorphone HCL INJ (*CRX) 1 MG/ML SYR 2 MG SUB-Q ×3 (00:08→07:47)
[2020-12-13 00:29] VITALS: PULSE 88; RESP 16
[2020-12-13] MEDS: BISACODYL 10 MG SUPPOSITORY RECTAL (06:12)
[2020-12-13] MEDS: LORazepam INJ (*CRX) 2 MG/ML VIAL 1 MG IV PUSH ×4 (07:47→22:30)
[2020-12-13 10:52] VITALS: PULSE 80; RESP 16
[2020-12-13] MEDS: HYDROmorphone HCL/PF (*CRX) 50 MG in SODIUM CHLORIDE 0.9% IV 95 ML IV CONT (10:52)
[2020-12-13 14:03] VITALS: PULSE 85; RESP 16; TEMP 36.6; O2SAT 93
[2020-12-13] MEDS: HYDROmorphone HCL INJ (*CRX) 1 MG/ML SYR IV PUSH (20:17)
[2020-12-13 22:00] VITALS: BP 143/96; PULSE 102; RESP 16; TEMP 37.4; O2SAT 91
[2020-12-13 23:35] VITALS: O2SAT 91
[2020-12-14] MEDS: HYDROmorphone HCL INJ (*CRX) 1 MG/ML SYR IV PUSH (01:11)
[2020-12-14 06:00] VITALS: BP 127/87; PULSE 115; RESP 24; TEMP 38.4; O2SAT 88
[2020-12-14 08:00] VITALS: BP 116/72; PULSE 108; RESP 20; TEMP 36.4; O2SAT 90
[2020-12-14] MEDS: HYDROmorphone HCL/PF (*CRX) 50 MG in SODIUM CHLORIDE 0.9% IV 95 ML IV CONT (10:57)
--- NOTE | 2020-12-14 18:01 | PM.IMPN ---
Progress Note: A&P Assessment and Plan (1) Palliative care by specialist: Code(s): Z51.5 - Encounter for palliative care Status: Acute Assessment and Plan: Meets general inpatient criteria due to uncontrolled restlessness and confusion requiring continuous narcotic infusion and intermittent p.r.n. benzodiazepine bolus for control Hydromorphone 0.25 milligrams/hour infusion with 1 mg IV every 2 hours as needed Lorazepam 1 mg IV Q 4 hours as needed Remainder palliative regimen as ordered (2) Pneumonia due to COVID-19 virus: Code(s): U07.1 - COVID-19; J12.82 - Pneumonia due to coronavirus disease 2019 Status: Acute (3) DARRIN (acute kidney injury): Code(s): N17.9 - Acute kidney failure, unspecified Status: Resolved (4) Encephalopathy: Code(s): G93.40 - Encephalopathy, unspecified Status: Acute (5) Dysphagia: Qualifiers: Dysphagia type: unspecified Qualified Code(s): R13.10 - Dysphagia, unspecified Code(s): R13.10 - Dysphagia, unspecified Status: Acute Subjective Date/time seen: 12/14/20 18:01 Interval history: Admitted to inpatient hospice 12/08 due to late cx's of COVID-19, including encephalopathy and restlessness. 12/14: Remains comfortable on IV regimen. Review of Systems Review of Systems: ROS unobtainable: Yes unobtainable due to medical condition Exam Narrative: Exam Narrative: HEENT: PERRL, sclerae nonicteric, pharyngeal mucosa pink and intact NECK: No JVD CHEST: Coarse breath sounds bilaterally with mild tachypnea HEART: NL S1/S2, regular, no murmur ABDOMEN: BS+, soft, nontender, no mass, no bruits EXTREMITIES: No cyanosis, edema, or clubbing NEUROLOGIC: CN intact and symmetric to inspection. MUSCULOSKELETAL: Tone and strength symmetric. PSYCH: Does not arouse to verbal or tactile stimuli Objective Data Vital Signs Vital Signs: Vital Signs - 24 hr 12/13/20 22:00 12/13/20 23:35 12/14/20 06:00 Temperature 99.4 F 101.1 F H Pulse Rate 102 H 115 H Respiratory Rate 16 24 H Blood Pressure 143/96 H 127/87 Pulse Oximetry 91 91 88 L 12/14/20 08:00 Temperature 97.5 F L Pulse Rate 108 H Respiratory Rate 20 Blood Pressure 116/72 Pulse Oximetry 90 Intake/Output Intake/Output: Intake & Output 12/11/20 12/12/20 12/13/20 12/14/20 23:59 23:59 23:59 23:59 Intake Total 100 100 5 22 Balance 100 100 5 22 Meds/Results Medications: Active Medications Generic Name Dose Route Start Last Admin Trade Name Freq PRN Reason Stop Dose Admin Artificial Tears 1 - 2 drop 12/08/20 15:31 Artificial Tears Op Soln 15 Ml Bottle EACH EYE BID PRN Dry Eye(s) Bisacodyl 10 mg 12/08/20 15:31 12/13/20 06:12 Bisacodyl 10 Mg Suppository RECTAL 10 mg QAM PRN Administration Constipation Glycopyrrolate 0.1 mg 12/08/20 15:31 12/11/20 21:42 Glycopyrrolate Inj (*Sp) 0.2 Mg/Ml Vial IV PUSH 0.1 mg Q4H PRN Administration Secretions Hydromorphone HCl 1 mg 12/13/20 09:20 12/14/20 01:11 Hydromorphone Hcl Inj (*Crx) 1 Mg/Ml Syr IV PUSH 1 mg Q2H PRN Administration Pain Rated 7-10 Hydromorphone HCl 50 mg/ 100 mls @ 0.5 mls/hr 12/13/20 10:00 12/14/20 10:57 Sodium Chloride IV CONT 0.25 mg/hr .Q24H JENSEN 0.5 mls/hr Administration 0.25 MG/HR Lorazepam 1 mg 12/08/20 15:31 12/13/20 22:30 Lorazepam Inj (*Crx) 2 Mg/Ml Vial IV PUSH 1 mg Q4H PRN Administration Agitation Prochlorperazine Edisylate 10 mg 12/08/20 15:31 Prochlorperazine Edisylate 10 Mg/2 Ml Vial IV PUSH Q6H PRN Nausea And Vomiting
[2020-12-14 22:00] VITALS: BP 157/84; PULSE 103; RESP 24; TEMP 37.2; O2SAT 90
[2020-12-15 06:00] VITALS: BP 147/85; PULSE 98; RESP 16; TEMP 36.9; O2SAT 92
[2020-12-15 06:55] VITALS: O2SAT 91
[2020-12-15] MEDS: HYDROmorphone HCL/PF (*CRX) 50 MG in SODIUM CHLORIDE 0.9% IV 95 ML IV CONT (11:08)
[2020-12-15 20:00] VITALS: BP 144/79; PULSE 92; RESP 18; TEMP 36.3; O2SAT 93
--- NOTE | 2020-12-15 21:59 | PM.IMPN ---
Progress Note: A&P Assessment and Plan (1) Palliative care by specialist: Code(s): Z51.5 - Encounter for palliative care Status: Acute Assessment and Plan: Meets general inpatient criteria due to uncontrolled restlessness and confusion requiring continuous narcotic infusion and intermittent p.r.n. benzodiazepine bolus for control Hydromorphone 0.25 milligrams/hour infusion with 1 mg IV every 2 hours as needed Lorazepam 1 mg IV Q 4 hours as needed Remainder palliative regimen as ordered Too unstable to transfer D/w son at bedside (2) Pneumonia due to COVID-19 virus: Code(s): U07.1 - COVID-19; J12.82 - Pneumonia due to coronavirus disease 2019 Status: Acute (3) DARRIN (acute kidney injury): Code(s): N17.9 - Acute kidney failure, unspecified Status: Resolved (4) Encephalopathy: Code(s): G93.40 - Encephalopathy, unspecified Status: Acute (5) Dysphagia: Qualifiers: Dysphagia type: unspecified Qualified Code(s): R13.10 - Dysphagia, unspecified Code(s): R13.10 - Dysphagia, unspecified Status: Acute Subjective Date/time seen: 12/15/20 21:59 Interval history: Admitted to inpatient hospice 12/08 due to late cx's of COVID-19, including encephalopathy and restlessness. 3/4: Remains comfortable on IV regimen. Review of Systems Review of Systems: ROS unobtainable: Yes unobtainable due to medical condition Exam Narrative: Exam Narrative: HEENT: PERRL, sclerae nonicteric, pharyngeal mucosa pink and intact NECK: No JVD CHEST: Coarse breath sounds bilaterally with mild tachypnea HEART: NL S1/S2, regular, no murmur ABDOMEN: BS+, soft, nontender, no mass, no bruits EXTREMITIES: No cyanosis, edema, or clubbing NEUROLOGIC: CN intact and symmetric to inspection. MUSCULOSKELETAL: Tone and strength symmetric. PSYCH: Does not arouse to verbal or tactile stimuli Objective Data Vital Signs Vital Signs: Vital Signs - 24 hr 12/14/20 22:00 12/15/20 06:00 12/15/20 06:55 Temperature 98.9 F 98.4 F Pulse Rate 103 H 98 Respiratory Rate 24 H 16 Blood Pressure 157/84 H 147/85 H Pulse Oximetry 90 92 91 12/15/20 20:00 Temperature 97.4 F L Pulse Rate 92 Respiratory Rate 18 Blood Pressure 144/79 H Pulse Oximetry 93 Intake/Output Intake/Output: Intake & Output 12/12/20 12/13/20 12/14/20 12/15/20 23:59 23:59 23:59 23:59 Intake Total 100 5 22 29 Balance 100 5 22 29 Meds/Results Medications: Active Medications Generic Name Dose Route Start Last Admin Trade Name Freq PRN Reason Stop Dose Admin Artificial Tears 1 - 2 drop 12/08/20 15:31 Artificial Tears Op Soln 15 Ml Bottle EACH EYE BID PRN Dry Eye(s) Bisacodyl 10 mg 12/08/20 15:31 12/13/20 06:12 Bisacodyl 10 Mg Suppository RECTAL 10 mg QAM PRN Administration Constipation Glycopyrrolate 0.1 mg 12/08/20 15:31 12/11/20 21:42 Glycopyrrolate Inj (*Sp) 0.2 Mg/Ml Vial IV PUSH 0.1 mg Q4H PRN Administration Secretions Hydromorphone HCl 1 mg 12/13/20 09:20 12/14/20 01:11 Hydromorphone Hcl Inj (*Crx) 1 Mg/Ml Syr IV PUSH 1 mg Q2H PRN Administration Pain Rated 7-10 Hydromorphone HCl 50 mg/ 100 mls @ 0.5 mls/hr 12/13/20 10:00 12/15/20 11:08 Sodium Chloride IV CONT 0.25 mg/hr .Q24H JENSEN 0.5 mls/hr Administration 0.25 MG/HR Lorazepam 1 mg 12/08/20 15:31 12/13/20 22:30 Lorazepam Inj (*Crx) 2 Mg/Ml Vial IV PUSH 1 mg Q4H PRN Administration Agitation Prochlorperazine Edisylate 10 mg 12/08/20 15:31 Prochlorperazine Edisylate 10 Mg/2 Ml Vial IV PUSH Q6H PRN Nausea And Vomiting
[2020-12-16 08:00] VITALS: BP 144/79; PULSE 83; RESP 12; TEMP 36.9; O2SAT 94
[2020-12-16] MEDS: HYDROmorphone HCL/PF (*CRX) 50 MG in SODIUM CHLORIDE 0.9% IV 95 ML IV CONT (12:52)
--- NOTE | 2020-12-16 18:37 | PM.IMPN ---
Progress Note: A&P Assessment and Plan (1) Palliative care by specialist: Code(s): Z51.5 - Encounter for palliative care Status: Acute Assessment and Plan: Meets general inpatient criteria due to uncontrolled restlessness and confusion requiring continuous narcotic infusion and intermittent p.r.n. benzodiazepine bolus for control Hydromorphone 0.25 milligrams/hour infusion with 1 mg IV every 2 hours as needed Lorazepam 1 mg IV Q 4 hours as needed Remainder palliative regimen as ordered Too unstable to transfer D/w son at bedside (2) Pneumonia due to COVID-19 virus: Code(s): U07.1 - COVID-19; J12.82 - Pneumonia due to coronavirus disease 2019 Status: Acute (3) DARRIN (acute kidney injury): Code(s): N17.9 - Acute kidney failure, unspecified Status: Resolved (4) Encephalopathy: Code(s): G93.40 - Encephalopathy, unspecified Status: Acute (5) Dysphagia: Qualifiers: Dysphagia type: unspecified Qualified Code(s): R13.10 - Dysphagia, unspecified Code(s): R13.10 - Dysphagia, unspecified Status: Acute Subjective Date/time seen: 12/16/20 18:37 Interval history: Admitted to inpatient hospice 12/08 due to late cx's of COVID-19, including encephalopathy and restlessness. 12/16: Remains comfortable on IV regimen. Review of Systems Review of Systems: ROS unobtainable: Yes unobtainable due to medical condition Exam Narrative: Exam Narrative: HEENT: PERRL, sclerae nonicteric, pharyngeal mucosa pink and intact NECK: No JVD CHEST: Coarse breath sounds bilaterally with mild tachypnea HEART: NL S1/S2, regular, no murmur ABDOMEN: BS+, soft, nontender, no mass, no bruits EXTREMITIES: No cyanosis, edema, or clubbing NEUROLOGIC: CN intact and symmetric to inspection. MUSCULOSKELETAL: Tone and strength symmetric. PSYCH: Does not arouse to verbal or tactile stimuli Objective Data Vital Signs Vital Signs: Vital Signs - 24 hr 12/15/20 20:00 12/16/20 08:00 Temperature 97.4 F L 98.4 F Pulse Rate 92 83 Respiratory Rate 18 12 Blood Pressure 144/79 H 144/79 H Pulse Oximetry 93 94 Intake/Output Intake/Output: Intake & Output 12/13/20 12/14/20 12/15/20 12/16/20 23:59 23:59 23:59 23:59 Intake Total 5 22 29 41 Balance 5 22 29 41 Meds/Results Medications: Active Medications Generic Name Dose Route Start Last Admin Trade Name Freq PRN Reason Stop Dose Admin Artificial Tears 1 - 2 drop 12/08/20 15:31 Artificial Tears Op Soln 15 Ml Bottle EACH EYE BID PRN Dry Eye(s) Bisacodyl 10 mg 12/08/20 15:31 12/13/20 06:12 Bisacodyl 10 Mg Suppository RECTAL 10 mg QAM PRN Administration Constipation Glycopyrrolate 0.1 mg 12/08/20 15:31 12/11/20 21:42 Glycopyrrolate Inj (*Sp) 0.2 Mg/Ml Vial IV PUSH 0.1 mg Q4H PRN Administration Secretions Hydromorphone HCl 1 mg 12/13/20 09:20 12/14/20 01:11 Hydromorphone Hcl Inj (*Crx) 1 Mg/Ml Syr IV PUSH 1 mg Q2H PRN Administration Pain Rated 7-10 Hydromorphone HCl 50 mg/ 100 mls @ 0.5 mls/hr 12/13/20 10:00 12/16/20 12:52 Sodium Chloride IV CONT 0.25 mg/hr .Q24H JENSEN 0.5 mls/hr Administration 0.25 MG/HR Lorazepam 1 mg 12/08/20 15:31 12/13/20 22:30 Lorazepam Inj (*Crx) 2 Mg/Ml Vial IV PUSH 1 mg Q4H PRN Administration Agitation Prochlorperazine Edisylate 10 mg 12/08/20 15:31 Prochlorperazine Edisylate 10 Mg/2 Ml Vial IV PUSH Q6H PRN Nausea And Vomiting
[2020-12-17] VITALS: BP 148/93; PULSE 92; RESP 16; TEMP 35.5; O2SAT 95
[2020-12-17] MEDS: LORazepam INJ (*CRX) 2 MG/ML VIAL 1 MG IV PUSH (03:19)
[2020-12-17 08:00] VITALS: BP 129/88; PULSE 85; RESP 14; TEMP 35.4; O2SAT 94
[2020-12-17] MEDS: HYDROmorphone HCL INJ (*CRX) 1 MG/ML SYR 2 MG IV PUSH (10:56)
[2020-12-17 11:02] VITALS: PULSE 84; RESP 18
[2020-12-17] MEDS: HYDROmorphone HCL/PF (*CRX) 50 MG in SODIUM CHLORIDE 0.9% IV 95 ML IV CONT (11:02)
[2020-12-17 11:12] VITALS: PULSE 84; RESP 18
[2020-12-17 11:17] VITALS: O2SAT 94
--- NOTE | 2020-12-17 18:25 | PM.IMPN ---
Progress Note: A&P Assessment and Plan (1) Palliative care by specialist: Code(s): Z51.5 - Encounter for palliative care Status: Acute Assessment and Plan: Meets general inpatient criteria due to uncontrolled restlessness and confusion requiring continuous narcotic infusion and intermittent p.r.n. benzodiazepine bolus for control Hydromorphone 1 milligram/hour infusion with 2 mg IV every 2 hours as needed Lorazepam 1 mg IV Q 4 hours as needed Remainder palliative regimen as ordered Too unstable to transfer D/w granddaughter at bedside (2) Pneumonia due to COVID-19 virus: Code(s): U07.1 - COVID-19; J12.82 - Pneumonia due to coronavirus disease 2019 Status: Acute (3) DARRIN (acute kidney injury): Code(s): N17.9 - Acute kidney failure, unspecified Status: Resolved (4) Encephalopathy: Code(s): G93.40 - Encephalopathy, unspecified Status: Acute (5) Dysphagia: Qualifiers: Dysphagia type: unspecified Qualified Code(s): R13.10 - Dysphagia, unspecified Code(s): R13.10 - Dysphagia, unspecified Status: Acute Subjective Date/time seen: 12/17/20 18:25 Interval history: Admitted to inpatient hospice 12/08 due to late cx's of COVID-19, including encephalopathy and restlessness. 12/17: Moaning and restless this AM. Comfortable since meds adjusted. Review of Systems Review of Systems: ROS unobtainable: Yes unobtainable due to medical condition Exam Narrative: Exam Narrative: HEENT: PERRL, sclerae nonicteric, pharyngeal mucosa pink and intact NECK: No JVD CHEST: Coarse breath sounds bilaterally with mild tachypnea HEART: NL S1/S2, regular, no murmur ABDOMEN: BS+, soft, nontender, no mass, no bruits EXTREMITIES: No cyanosis, edema, or clubbing NEUROLOGIC: CN intact and symmetric to inspection. MUSCULOSKELETAL: Tone and strength symmetric. PSYCH: Does not arouse to verbal or tactile stimuli Objective Data Vital Signs Vital Signs: Vital Signs - 24 hr 12/17/20 00:00 12/17/20 08:00 12/17/20 11:02 Temperature 96 F L 95.7 F L Pulse Rate 92 85 84 Respiratory Rate 16 14 18 Blood Pressure 148/93 H 129/88 Pulse Oximetry 95 94 12/17/20 11:12 12/17/20 11:17 Temperature Pulse Rate 84 Respiratory Rate 18 Blood Pressure Pulse Oximetry 94 Intake/Output Intake/Output: Intake & Output 12/14/20 12/15/20 12/16/20 12/17/20 23:59 23:59 23:59 23:59 Intake Total 22 29 41 100 Balance 22 29 41 100 Meds/Results Medications: Active Medications Generic Name Dose Route Start Last Admin Trade Name Freq PRN Reason Stop Dose Admin Artificial Tears 1 - 2 drop 12/08/20 15:31 Artificial Tears Op Soln 15 Ml Bottle EACH EYE BID PRN Dry Eye(s) Bisacodyl 10 mg 12/08/20 15:31 12/13/20 06:12 Bisacodyl 10 Mg Suppository RECTAL 10 mg QAM PRN Administration Constipation Glycopyrrolate 0.1 mg 12/08/20 15:31 12/11/20 21:42 Glycopyrrolate Inj (*Sp) 0.2 Mg/Ml Vial IV PUSH 0.1 mg Q4H PRN Administration Secretions Hydromorphone HCl 2 mg 12/17/20 10:48 Hydromorphone Hcl Inj (*Crx) 1 Mg/Ml Syr IV PUSH Q2H PRN Pain Rated 7-10 Hydromorphone HCl 50 mg/ 100 mls @ 2 mls/hr 12/13/20 10:00 12/17/20 11:12 Sodium Chloride IV CONT 1 mg/hr .Q24H JENSEN 2 mls/hr Infusion 1 MG/HR Lorazepam 1 mg 12/08/20 15:31 12/17/20 03:19 Lorazepam Inj (*Crx) 2 Mg/Ml Vial IV PUSH 1 mg Q4H PRN Administration Agitation Prochlorperazine Edisylate 10 mg 12/08/20 15:31 Prochlorperazine Edisylate 10 Mg/2 Ml Vial IV PUSH Q6H PRN Nausea And Vomiting
[2020-12-17 20:00] VITALS: O2SAT 94
[2020-12-18 08:00] VITALS: BP 119/73; PULSE 80; PULSE 83; RESP 12; RESP 15; TEMP 36.3; O2SAT 91
[2020-12-18 10:27] VITALS: PULSE 80; RESP 15
[2020-12-18] MEDS: HYDROmorphone HCL/PF (*CRX) 50 MG in SODIUM CHLORIDE 0.9% IV 95 ML IV CONT (10:27)
[2020-12-18 13:38] VITALS: BP 122/78; PULSE 86; RESP 12; TEMP 36.6; O2SAT 86
[2020-12-18 18:30] VITALS: BP 105/74; PULSE 77; RESP 12; TEMP 36.3; O2SAT 92
[2020-12-18 20:00] VITALS: BP 117/64; PULSE 74; RESP 12; TEMP 35.9; O2SAT 95
--- NOTE | 2020-12-18 20:40 | PM.IMPN ---
Progress Note: A&P Assessment and Plan (1) Palliative care by specialist: Code(s): Z51.5 - Encounter for palliative care Status: Acute Assessment and Plan: Meets general inpatient criteria due to uncontrolled restlessness and confusion requiring continuous narcotic infusion and intermittent p.r.n. benzodiazepine bolus for control Hydromorphone 1 milligram/hour infusion with 2 mg IV every 2 hours as needed Lorazepam 1 mg IV Q 4 hours as needed Remainder palliative regimen as ordered Too unstable to transfer D/w spouse and granddaughter at bedside (2) Pneumonia due to COVID-19 virus: Code(s): U07.1 - COVID-19; J12.82 - Pneumonia due to coronavirus disease 2019 Status: Acute (3) DARRIN (acute kidney injury): Code(s): N17.9 - Acute kidney failure, unspecified Status: Resolved (4) Encephalopathy: Code(s): G93.40 - Encephalopathy, unspecified Status: Acute (5) Dysphagia: Qualifiers: Dysphagia type: unspecified Qualified Code(s): R13.10 - Dysphagia, unspecified Code(s): R13.10 - Dysphagia, unspecified Status: Acute Subjective Date/time seen: 12/18/20 20:40 Interval history: Admitted to inpatient hospice 12/08 due to late cx's of COVID-19, including encephalopathy and restlessness. 12/18: Sleeping all day. Review of Systems Review of Systems: ROS unobtainable: Yes unobtainable due to medical condition Exam Narrative: Exam Narrative: HEENT: PERRL, sclerae nonicteric, pharyngeal mucosa pink and intact NECK: No JVD CHEST: Coarse breath sounds bilaterally with mild tachypnea HEART: NL S1/S2, regular, no murmur ABDOMEN: BS+, soft, nontender, no mass, no bruits EXTREMITIES: No cyanosis, edema, or clubbing NEUROLOGIC: CN intact and symmetric to inspection. MUSCULOSKELETAL: Tone and strength symmetric. PSYCH: Does not arouse to verbal or tactile stimuli Objective Data Vital Signs Vital Signs: Vital Signs - 24 hr 12/18/20 08:00 12/18/20 10:27 12/18/20 13:38 Temperature 97.4 F L 97.8 F Pulse Rate 80 80 86 Respiratory Rate 15 15 12 Blood Pressure 119/73 122/78 Pulse Oximetry 91 86 L 12/18/20 18:30 Temperature 97.4 F L Pulse Rate 77 Respiratory Rate 12 Blood Pressure 105/74 Pulse Oximetry 92 Intake/Output Intake/Output: Intake & Output 12/15/20 12/16/20 12/17/20 12/18/20 23:59 23:59 23:59 23:59 Intake Total 29 41 100 60 Balance 29 41 100 60 Meds/Results Medications: Active Medications Generic Name Dose Route Start Last Admin Trade Name Freq PRN Reason Stop Dose Admin Artificial Tears 1 - 2 drop 12/08/20 15:31 Artificial Tears Op Soln 15 Ml Bottle EACH EYE BID PRN Dry Eye(s) Bisacodyl 10 mg 12/08/20 15:31 12/13/20 06:12 Bisacodyl 10 Mg Suppository RECTAL 10 mg QAM PRN Administration Constipation Glycopyrrolate 0.1 mg 12/08/20 15:31 12/11/20 21:42 Glycopyrrolate Inj (*Sp) 0.2 Mg/Ml Vial IV PUSH 0.1 mg Q4H PRN Administration Secretions Hydromorphone HCl 2 mg 12/17/20 10:48 Hydromorphone Hcl Inj (*Crx) 1 Mg/Ml Syr IV PUSH Q2H PRN Pain Rated 7-10 Hydromorphone HCl 50 mg/ 100 mls @ 2 mls/hr 12/13/20 10:00 12/18/20 10:27 Sodium Chloride IV CONT 1 mg/hr .Q24H JENSEN 2 mls/hr Administration 1 MG/HR Lorazepam 1 mg 12/08/20 15:31 12/17/20 03:19 Lorazepam Inj (*Crx) 2 Mg/Ml Vial IV PUSH 1 mg Q4H PRN Administration Agitation Prochlorperazine Edisylate 10 mg 12/08/20 15:31 Prochlorperazine Edisylate 10 Mg/2 Ml Vial IV PUSH Q6H PRN Nausea And Vomiting
[2020-12-19 08:00] VITALS: BP 114/58; PULSE 85; RESP 12; TEMP 36.1; O2SAT 90
[2020-12-19] MEDS: LORazepam INJ (*CRX) 2 MG/ML VIAL 1 MG IV PUSH (08:35)
[2020-12-19 11:07] VITALS: PULSE 85; RESP 12
[2020-12-19] MEDS: HYDROmorphone HCL/PF (*CRX) 50 MG in SODIUM CHLORIDE 0.9% IV 95 ML IV CONT (11:07)
[2020-12-19 20:00] VITALS: BP 118/77; PULSE 81; RESP 15; TEMP 36.6; O2SAT 94
--- NOTE | 2020-12-19 20:47 | PM.IMPN ---
Progress Note: A&P Assessment and Plan (1) Palliative care by specialist: Code(s): Z51.5 - Encounter for palliative care Status: Acute Assessment and Plan: Meets general inpatient criteria due to uncontrolled restlessness and confusion requiring continuous narcotic infusion and intermittent p.r.n. benzodiazepine bolus for control Hydromorphone 1 milligram/hour infusion with 2 mg IV every 2 hours as needed Lorazepam 1 mg IV Q 4 hours as needed Remainder palliative regimen as ordered Too unstable to transfer (2) Pneumonia due to COVID-19 virus: Code(s): U07.1 - COVID-19; J12.82 - Pneumonia due to coronavirus disease 2019 Status: Acute (3) DARRIN (acute kidney injury): Code(s): N17.9 - Acute kidney failure, unspecified Status: Resolved (4) Encephalopathy: Code(s): G93.40 - Encephalopathy, unspecified Status: Acute (5) Dysphagia: Qualifiers: Dysphagia type: unspecified Qualified Code(s): R13.10 - Dysphagia, unspecified Code(s): R13.10 - Dysphagia, unspecified Status: Acute Subjective Date/time seen: 12/19/20 20:47 Interval history: Admitted to inpatient hospice 12/08 due to late cx's of COVID-19, including encephalopathy and restlessness. 12/19: Sleeping all day. Review of Systems Review of Systems: ROS unobtainable: Yes unobtainable due to medical condition Exam Narrative: Exam Narrative: HEENT: PERRL, sclerae nonicteric, pharyngeal mucosa pink and intact NECK: No JVD CHEST: Coarse breath sounds bilaterally with mild tachypnea HEART: NL S1/S2, regular, no murmur ABDOMEN: BS+, soft, nontender, no mass, no bruits EXTREMITIES: No cyanosis, edema, or clubbing NEUROLOGIC: CN intact and symmetric to inspection. MUSCULOSKELETAL: Tone and strength symmetric. PSYCH: Does not arouse to verbal or tactile stimuli Objective Data Vital Signs Vital Signs: Vital Signs - 24 hr 12/19/20 08:00 12/19/20 11:07 12/19/20 20:00 Temperature 97.0 F L 97.9 F Pulse Rate 85 85 81 Respiratory Rate 12 12 15 Blood Pressure 114/58 L 118/77 Pulse Oximetry 90 94 Intake/Output Intake/Output: Intake & Output 12/16/20 12/17/20 12/18/20 12/19/20 23:59 23:59 23:59 23:59 Intake Total 41 100 60 59 Balance 41 100 60 59 Meds/Results Medications: Active Medications Generic Name Dose Route Start Last Admin Trade Name Freq PRN Reason Stop Dose Admin Artificial Tears 1 - 2 drop 12/08/20 15:31 Artificial Tears Op Soln 15 Ml Bottle EACH EYE BID PRN Dry Eye(s) Bisacodyl 10 mg 12/08/20 15:31 12/13/20 06:12 Bisacodyl 10 Mg Suppository RECTAL 10 mg QAM PRN Administration Constipation Glycopyrrolate 0.1 mg 12/08/20 15:31 12/11/20 21:42 Glycopyrrolate Inj (*Sp) 0.2 Mg/Ml Vial IV PUSH 0.1 mg Q4H PRN Administration Secretions Hydromorphone HCl 2 mg 12/17/20 10:48 Hydromorphone Hcl Inj (*Crx) 1 Mg/Ml Syr IV PUSH Q2H PRN Pain Rated 7-10 Hydromorphone HCl 50 mg/ 100 mls @ 2 mls/hr 12/13/20 10:00 12/19/20 11:07 Sodium Chloride IV CONT 1 mg/hr .Q24H JENSEN 2 mls/hr Administration 1 MG/HR Lorazepam 1 mg 12/08/20 15:31 12/19/20 08:35 Lorazepam Inj (*Crx) 2 Mg/Ml Vial IV PUSH 1 mg Q4H PRN Administration Agitation Prochlorperazine Edisylate 10 mg 12/08/20 15:31 Prochlorperazine Edisylate 10 Mg/2 Ml Vial IV PUSH Q6H PRN Nausea And Vomiting
[2020-12-20 08:00] VITALS: BP 116/54; PULSE 80; RESP 12; TEMP 36.5; O2SAT 90
[2020-12-20] MEDS: HYDROmorphone HCL/PF (*CRX) 50 MG in SODIUM CHLORIDE 0.9% IV 95 ML IV CONT (11:18)
[2020-12-20 13:40] VITALS: BP 95/73; PULSE 77; RESP 13; TEMP 36.4; O2SAT 91
[2020-12-20 18:38] VITALS: BP 117/56; PULSE 77; RESP 12; TEMP 36.4; O2SAT 91
[2020-12-20 20:00] VITALS: BP 94/59; PULSE 73; RESP 12; TEMP 36.4; O2SAT 91
--- NOTE | 2020-12-20 20:00 | PM.IMPN ---
Progress Note: A&P Assessment and Plan (1) Palliative care by specialist: Code(s): Z51.5 - Encounter for palliative care Status: Acute Assessment and Plan: Meets general inpatient criteria due to uncontrolled restlessness and confusion requiring continuous narcotic infusion and intermittent p.r.n. benzodiazepine bolus for control Hydromorphone 1 milligram/hour infusion with 2 mg IV every 2 hours as needed Lorazepam 1 mg IV Q 4 hours as needed Remainder palliative regimen as ordered Too unstable to transfer D/w spouse and granddaughter at bedside (2) Pneumonia due to COVID-19 virus: Code(s): U07.1 - COVID-19; J12.82 - Pneumonia due to coronavirus disease 2019 Status: Acute (3) DARRIN (acute kidney injury): Code(s): N17.9 - Acute kidney failure, unspecified Status: Resolved (4) Encephalopathy: Code(s): G93.40 - Encephalopathy, unspecified Status: Acute (5) Dysphagia: Qualifiers: Dysphagia type: unspecified Qualified Code(s): R13.10 - Dysphagia, unspecified Code(s): R13.10 - Dysphagia, unspecified Status: Acute Subjective Date/time seen: 12/20/20 20:00 Interval history: Admitted to inpatient hospice 12/08 due to late cx's of COVID-19, including encephalopathy and restlessness. 12/20: Sleeping all day. Review of Systems Review of Systems: ROS unobtainable: Yes unobtainable due to medical condition Exam Narrative: Exam Narrative: HEENT: PERRL, sclerae nonicteric, pharyngeal mucosa pink and intact NECK: No JVD CHEST: Coarse breath sounds bilaterally with mild tachypnea HEART: NL S1/S2, regular, no murmur ABDOMEN: BS+, soft, nontender, no mass, no bruits EXTREMITIES: No cyanosis, edema, or clubbing NEUROLOGIC: CN intact and symmetric to inspection. MUSCULOSKELETAL: Tone and strength symmetric. PSYCH: Does not arouse to verbal or tactile stimuli Objective Data Vital Signs Vital Signs: Vital Signs - 24 hr 12/20/20 08:00 12/20/20 13:40 12/20/20 18:38 Temperature 97.7 F 97.5 F L 97.6 F Pulse Rate 80 77 77 Respiratory Rate 12 13 12 Blood Pressure 116/54 L 95/73 L 117/56 L Pulse Oximetry 90 91 91 Intake/Output Intake/Output: Intake & Output 12/17/20 12/18/20 12/19/20 12/20/20 23:59 23:59 23:59 23:59 Intake Total 100 60 59 50 Balance 100 60 59 50 Meds/Results Medications: Active Medications Generic Name Dose Route Start Last Admin Trade Name Freq PRN Reason Stop Dose Admin Artificial Tears 1 - 2 drop 12/08/20 15:31 Artificial Tears Op Soln 15 Ml Bottle EACH EYE BID PRN Dry Eye(s) Bisacodyl 10 mg 12/08/20 15:31 12/13/20 06:12 Bisacodyl 10 Mg Suppository RECTAL 10 mg QAM PRN Administration Constipation Glycopyrrolate 0.1 mg 12/08/20 15:31 12/11/20 21:42 Glycopyrrolate Inj (*Sp) 0.2 Mg/Ml Vial IV PUSH 0.1 mg Q4H PRN Administration Secretions Hydromorphone HCl 2 mg 12/17/20 10:48 Hydromorphone Hcl Inj (*Crx) 1 Mg/Ml Syr IV PUSH Q2H PRN Pain Rated 7-10 Hydromorphone HCl 50 mg/ 100 mls @ 2 mls/hr 12/13/20 10:00 12/20/20 11:18 Sodium Chloride IV CONT 1 mg/hr .Q24H JENSEN 2 mls/hr Administration 1 MG/HR Lorazepam 1 mg 12/08/20 15:31 12/19/20 08:35 Lorazepam Inj (*Crx) 2 Mg/Ml Vial IV PUSH 1 mg Q4H PRN Administration Agitation Prochlorperazine Edisylate 10 mg 12/08/20 15:31 Prochlorperazine Edisylate 10 Mg/2 Ml Vial IV PUSH Q6H PRN Nausea And Vomiting
[2020-12-21] MEDS: LORazepam INJ (*CRX) 2 MG/ML VIAL 1 MG IV PUSH ×2 (00:36→10:02)
[2020-12-21 08:00] VITALS: BP 68/45; PULSE 89; RESP 20; TEMP 36.2; O2SAT 86
[2020-12-21] MEDS: HYDROmorphone HCL INJ (*CRX) 1 MG/ML SYR 2 MG IV PUSH (10:03)
--- NOTE | 2020-12-27 09:52 | P.DN_ITS ---
Discharge Sum: Prov Provider Primary care physician: Shay Clements, Admitting provider: Herbert Hendricks MD Discharge Sum: Diag Contributing Factors (1) Pneumonia due to COVID-19 virus: (2) DARRIN (acute kidney injury): (3) Encephalopathy: (4) Dysphagia: Discharge Sum: Summary Date and Time Date of admission: 12/08/20 14:40 Summary Details: 85 year old male who was found at home lying next to his bed. He has not been feeling well for a few days apparently and not eating and drinking as well as usual. He was found to have bilateral pneumonia and acute kidney failure with a creatinine of 2.9 on November 28. He was admitted and found to have positive COVID swab. He was treated with antibiotics for community- acquired pneumonia as well as rim-severe and steroids. He remained with altered mental status throughout hospitalization. He was unable to eat and drink. He remained oriented to person only with intermittent agitation. He received peripheral IV nutrition and IV fluids. His creatinine improved to 1.2 by day of admission hospice. Because of his failure to improve and the family's desire not to proceed with tube feedings and because of his restlessness and discomfort he was admitted to inpatient hospice for symptom control. Medications were titrated to comfort. After several days, he peacefully. Additional Data Attending physician: Herbert Hendricks MD
== END 2020-12-21 11:22 | disposition expired | DRG 951 ==
PROVIDERS: Admitting Provider Internal Medicine; PCP Internal Medicine; Visit Provider Internal Medicine
DX: Z51.5 Encounter for palliative care (principal); U07.1 COVID-19; J12.82 Pneumonia due to coronavirus disease 2019; N17.9 Acute kidney failure, unspecified; G93.40 Encephalopathy, unspecified; R45.1 Restlessness and agitation; R13.10 Dysphagia, unspecified; I10 Essential (primary) hypertension; E78.5 Hyperlipidemia, unspecified; H40.9 Unspecified glaucoma
CPT/HCPCS: A9270; J1170; J2060